=== PATIENT | female | born 1980 | race Caucasian/White ===

== ENCOUNTER 2020-05-31 15:55 | Emergency (ER) | payer MEDICAID ==
--- NOTE | 2020-05-31 16:29 | EDM.PDOC ---
ED HPI GENERAL MEDICAL PROBLEM - General Chief Complaint: Behavioral/Psych Stated Complaint: behavioral issue Time Seen by Provider: 05/31/20 16:20 Source of Information: Reports: Patient, Old Records ([facility] EMR. No paper hospital chart available.) History Limitations: Reports: No Limitations - History of Present Illness INITIAL COMMENTS - FREE TEXT/NARRATIVE: The patient was brought to the emergency room via private automobile by Sejal Michel from [facility], who was concerned about the patient's anxiety and depression with apparent returned alcohol use since being discharged from the treatment program at [facility] on 05/28. Patient denies any suicidal ideation, however is having a panic attack and is requesting some sedation. She apparently did drink 1 shot of vodka earlier today and has had used some alcohol since hospital discharge as above. She has not restarted her marijuana use, however. No history of hallucinations, etc.. No recent history of abdominal pain, heartburn, nausea, diarrhea, melena, gross hematochezia, or any food intolerance, including fatty foods, etc.. The patient also denies any recent fever, cough, wheezing, dyspnea, etc.. No history of recent headaches, visual changes, diplopia, change in mental status, or other change in neurological status. She denies any pain or discomfort. 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: Other (see below) (None) - Related Data Allergies Allergy/AdvReac Type Severity Reaction Status Date / Time No Known Allergies Allergy Verified 05/31/20 15:58 Home Meds: Home Meds Divalproex Sodium 2,500 mg PO BEDTIME 05/31/20 [History] Docusate Sodium [Colace] 100 mg PO BID PRN 05/31/20 [History] Multivitamins,Ther w-Minerals [Multivitamins with Minerals HP] 1 tab PO DAILY 05/31/20 [History] Nicotine Polacrilex [Nicotine Gum] 4 mg PO 6XDAY PRN 05/31/20 [History] Nicotine [Nicotine Patch] 1 patch TOP DAILY PRN 05/31/20 [History] OLANZapine [Olanzapine] 20 mg PO BEDTIME 05/31/20 [History] Polyvinyl Alcohol [Artificial Tears] 1 drop EYEBOTH Q4H PRN 05/31/20 [History] Propranolol HCl [Propranolol] 10 mg PO BID 05/31/20 [History] SUMAtriptan [Imitrex] 100 mg PO DAILY PRN 05/31/20 [History] hydrOXYzine pamoate [Vistaril] 25 mg PO TID 05/31/20 [History] Past Medical History HEENT History: Reports: Allergic Rhinitis, Impaired Vision, Other (See Below) Other HEENT History: The patient wears glasses and soft contact lenses. 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 Musculoskeletal History: Reports: Arthritis, Osteoarthritis Neurological History: Reports: Headaches, Chronic, Migraines Psychiatric History: Reports: Anxiety, Depression, Panic Attack, Psych Hospitalization(s), Psychosis, Other (See Below). Denies: Suicide Attempt, Suicidal Ideation Other Psychiatric History: Recent psychiatric, alcohol, and drug treatment at [facility] in May 2020 Endocrine/Metabolic History: Reports: Obesity/BMI 30+ - Past Surgical History Female Surgical History: Reports: D&C, Dilitation & Evacuation, Other (See Below) Other Female Surgeries/Procedures: SABs as above. Social & Family History - Tobacco Use Smoking Status *Q: Current Every Day Smoker Tobacco Use Within Last Twelve Months: Cigarettes Years of Tobacco use: 33 Packs/Tins Daily: 1 Packs/Tins Daily Comment: Started smoking at age 17 with maximum use of 1.5 packs/day Used Tobacco, but Quit: No Smoking Cessation Information Provided To Patient: Yes Second Hand Smoke Exposure: No Second Hand Smoke Education Provided: No - Alcohol Use Alcohol Use History: Yes Days Per Week of Alcohol Use: 2 Number of Drinks Per Day: 2 Number of Drinks Per Day Comment: Denies DWI, however previous history of alcohol abuse and treatment. Total Drinks Per Week: 4 Alcohol Use in Last Twelve Months: Yes Alcohol Use Frequency: Binges - Recreational Drug Use Recreational Drug Use: Yes Drug Use in Last 12 Months: Yes Recreational Drug Type: Reports: Amphetamines (Speed) (Experimental in 2019), Marijuana/Hashish (Regular use since age 17), Methamphetamine (As above). Denies: Cocaine, Heroin, Inhalants (Glues, Solvents, Aerosols), LSD (Acid), Morphine, Oxycodone - Living Situation & Occupation Living situation: Reports: (2017, no children), Alone Occupation: Employed ([employer]) ED ROS GENERAL - Review of Systems Review Of Systems: Comprehensive ROS is negative, except as noted in HPI. ED EXAM, GENERAL - Physical Exam Exam: See Below Exam Limited By: No Limitations General Appearance: Alert, WD/WN, No Apparent Distress, Anxious (Moderate but not suicidal) Head: Atraumatic, Normocephalic Neck: Normal Inspection, Supple, Non-Tender, Full Range of Motion. No: Lymphadenopathy (L), Lymphadenopathy (R), Thyromegaly Respiratory/Chest: No Respiratory Distress, Lungs Clear, Normal Breath Sounds, No Accessory Muscle Use, Chest Non-Tender. No: Pleural Rub, Retractions Cardiovascular: Normal Peripheral Pulses, Regular Rate, Rhythm, No Edema, No Gallop, No JVD, No Murmur, No Rub. No: Gallop/S3, Gallop/S4, Friction Rub Peripheral Pulses: 2+: Radial (L), Radial (R) GI/Abdominal: Normal Bowel Sounds, Soft, Non-Tender, No Organomegaly, No Distention, No Abnormal Bruit, No Mass, Other (Obese). No: Guarding (Female) Exam: Deferred Rectal (Female) Exam: Deferred Back Exam: Normal Inspection, Full Range of Motion. No: CVA Tenderness (L), CVA Tenderness (R), Muscle Spasm Extremities: Normal Inspection, Normal Range of Motion, Non-Tender, Normal Capillary Refill, No Pedal Edema Neurological: Alert, Oriented, CN II-XII Intact, Normal Cognition, Normal Gait, No Motor/Sensory Deficits Psychiatric: Anxious (Moderate), Depressed Mood (Moderate but not suicidal), Other (No evidence of intoxication) Skin Exam: Warm, Dry, Intact, Normal Color, No Rash. No: Diaphoretic, Wound/Incision Lymphatic: No Adenopathy Course - Vital Signs Last Recorded V/S: Last Vital Signs Temp 37.3 C 05/31/20 15:59 Pulse 86 05/31/20 15:59 Resp 16 05/31/20 15:59 BP 126/65 05/31/20 15:59 Pulse Ox 99 05/31/20 15:59 Vital Signs - 24 hr 05/31/20 15:59 Temperature [ 37.3 C Temporal] Pulse, 86 Peripheral [ Right Pulse Oximetry] Respiratory 16 Rate Blood Pressure 126/65 [Left Upper Arm ] O2 Sat by Pulse 99 Oximetry - Orders/Labs/Meds Labs: Laboratory Tests 05/31/20 05/31/20 05/31/20 Range/Units 17:06 17:06 17:10 WBC 8.9 (4.0-10.2) K/uL RBC 3.34 L (3.77-5.09) M/uL Hgb 11.0 L (11.7-15.5) g/dL Hct 33.0 L (34.0-46.0) % MCV 98.8 H (84.0-98.0) fL MCH 32.9 (28.2-33.3) pg MCHC 33.3 (31.7-36.0) g/dL RDW 12.6 (11.2-14.1) % Plt Count 346 (150-350) K/uL Neut % (Auto) 46.3 (45.0-80.0) % Lymph % (Auto) 42.2 (10.0-50.0) % [place] % (Auto) 11.2 (2.0-14.0) % Eos % (Auto) 0.2 (0.0-5.0) % Baso % (Auto) 0.1 (0.0-2.0) % Neut # (Auto) 4.11 (1.40-7.00) K/uL Lymph # (Auto) 3.76 H (0.50-3.50) K/uL [place] # (Auto) 1.00 (0.00-1.00) K/uL Eos # (Auto) 0.02 (0.00-0.50) K/uL Baso # (Auto) 0.01 (0.00-0.20) K/uL Sodium 135 L (136-145) mmol/L Potassium 3.6 (3.5-5.1) mmol/L Chloride 99 (98-107) mmol/L Carbon Dioxide 27.0 (21.0-32.0) mmol/L BUN 4 L (7-18) mg/dL Creatinine 0.60 (0.51-1.17) mg/dL Est Cr Clr Drug Dosing TNP Estimated GFR (MDRD) > 60 mL/min Glucose 128 H (74-106) mg/dL Calcium 9.0 (8.5-10.1) mg/dL Total Bilirubin 0.2 (0.2-1.0) mg/dL AST 16 (15-37) U/L ALT 26 (12-78) U/L Alkaline Phosphatase 61 (46-116) IU/L Total Protein 6.9 (6.4-8.2) g/dL Albumin 3.4 (3.4-5.0) g/dL TSH, Ultra Sensitive 2.151 (0.358-3.740) mIU/mL Urine Opiates Screen Negative (NEGATIVE) Ur Buprenorphine Scrn Negative (NEGATIVE) Ur Oxycodone Screen Negative (NEGATIVE) Ur EDDP (Meth Metab) Negative (NEGATIVE) Ur Barbiturates Screen Negative (NEGATIVE) Ur Tricyclics Screen Negative (NEGATIVE) Ur Amphetamine Screen Negative (NEGATIVE) U Methamphetamines Scrn Negative (NEGATIVE) Urine MDMA Screen Negative (NEGATIVE) U Benzodiazepines Scrn Negative (NEGATIVE) U Cocaine Metab Screen Negative (NEGATIVE) U Marijuana (THC) Screen Negative (NEGATIVE) Ethyl Alcohol 0.001 (0.000-0.080) g/dL Meds: Medications Discontinued Medications Generic Name Dose Route Start Last Admin Trade Name Freq PRN Reason Stop Dose Admin Heparin Sodium (Porcine) 4,000 units 05/31/20 16:30 Heparin Sodium IVPUSH 05/31/20 16:31 ONETIME ONE Nitroglycerin/Dextrose 25 mg in 250 mls @ 6 mls/hr 05/31/20 16:30 Nitroglycerin 25 Mg/D5w 250 Ml IV TITRATE MAX 10 MCG/MIN Heparin Sodium/Sodium Chloride 500 mls @ 0 mls/hr 05/31/20 16:30 Heparin 25,000 Units In 1/2 Ns 500 Ml IV TITRATE MAX Protocol 12 UNITS/KG/HR Sodium Chloride 1,000 mls @ 30 mls/hr 05/31/20 16:45 Normal Saline IV ASDIRECTED MAX Sodium Chloride 1,000 mls @ 30 mls/hr 05/31/20 16:45 Normal Saline IV ASDIRECTED MAX Lorazepam 1 mg 05/31/20 16:57 05/31/20 17:36 Ativan IVPUSH 05/31/20 16:58 1 mg ONETIME ONE Administration Sodium Chloride 10 ml 05/31/20 16:33 Saline Flush FLUSH ASDIRECTED PRN Keep Vein Open Sodium Chloride 10 ml 05/31/20 16:57 Saline Flush FLUSH ASDIRECTED PRN Keep Vein Open Ticagrelor 180 mg 05/31/20 16:38 Brilinta PO 05/31/20 16:39 ONETIME ONE - Radiology Interpretation Free Text/Narrative:: None Departure - Departure Time of Disposition: 19:14 Disposition: Home, Self-Care 01 Clinical Impression: Drug abuse, Mixed anxiety depressive disorder, Tobacco abuse counseling, Alcohol abuse, Hyponatremia Asthma Qualifiers: Asthma severity: mild Asthma persistence: intermittent Asthma complication type: with status asthmaticus Qualified Code(s): J45.22 - Mild intermittent asthma with status asthmaticus Anemia Qualifiers: Anemia type: unspecified type Qualified Code(s): D64.9 - Anemia, unspecified - Discharge Information *PRESCRIPTION DRUG MONITORING PROGRAM REVIEWED*: Not Applicable *COPY OF PRESCRIPTION DRUG MONITORING REPORT IN PATIENT PAULINE: Not Applicable Instructions: Steps to Quit Smoking, [id number], Health Risks of Smoking, Substance Use Disorder and Mental Illness Referrals: Iqra Roldan PA-C [Primary Care Provider] - Forms: ED Department Discharge Additional Instructions: 1. Follow-up with your regular provider, Iqra Briseno PA-C, at [facility] in [place], as scheduled tomorrow and see if you can expedite your psychiatric telemedicine conference. 2. Stop all tobacco use AKIRA as directed/per provided information and consider contacting Quit LIne, etc.. 3. Stop all alcohol and illicit drug use AKIRA as discussed 4. Immediately after this visit verify that your cellular telephone's voicemail has been activated and is empty. Also verify that your home telephone's answering machine is operating properly and has space to receive messages. Note that it is sometimes necessary for us to be able to contact you at a later date to discuss your medical care. 5. Please remember that we are ALWAYS here for you and want to answer any questions you may have. Feel free to call the hospital any time and we call you back AKIRA. Sepsis Event Note (ED) - Evaluation Sepsis Screening Result: No Definite Risk - Problem List & Annotations (1) Mixed anxiety depressive disorder SNOMED Code(s): 337147682 Code(s): F41.8 - OTHER SPECIFIED ANXIETY DISORDERS Status: Acute Priority: High Annotation/Comment:: Poor control based on today's evaluation. Note recent hospitalization and discharge from [facility] on 05/28/2020 for treatment of her emotional disorder, substance abuse, etc. as above and below. Emotional support was provided. She apparently already has telemedicine psychotherapy counseling scheduled through [facility]. She also has a follow-up appointment with her regular provider tomorrow with regular provider to attempt to obtain an earlier psychiatric teleconference as per discharge instructions. 1 dose of IV Ativan was given with excellent results. Sedation precautions were given. She does not need a work excuse by her history. (2) Alcohol abuse SNOMED Code(s): 06675799 Code(s): F10.10 - ALCOHOL ABUSE, UNCOMPLICATED Status: Chronic Priority: Medium Annotation/Comment:: Alcohol level normal today. Note recent alcohol treatment at [facility] with discharge on 05/28. Alcohol cessation strongly encouraged. (3) Asthma SNOMED Code(s): 649963235 Code(s): J45.909 - UNSPECIFIED ASTHMA, UNCOMPLICATED Status: Chronic Priority: Medium Annotation/Comment:: No recent fever or bronchitic type symptoms. Stable by history. No tobacco and marijuana use Qualifiers: Asthma severity: mild Asthma persistence: intermittent Asthma complication type: with status asthmaticus Qualified Code(s): J45.22 - Mild intermittent asthma with status asthmaticus (4) Drug abuse SNOMED Code(s): 72185176 Code(s): F19.10 - OTHER PSYCHOACTIVE SUBSTANCE ABUSE, UNCOMPLICATED Status: Chronic Priority: Medium Annotation/Comment:: Note recent hospitalization at [facility] as above. Patient stated that she had tainted marijuana prior to that admission. Discontinue marijuana AKIRA. (5) Tobacco abuse counseling SNOMED Code(s): 758257831, 896605733, 780808955 Code(s): Z71.6 - TOBACCO ABUSE COUNSELING Status: Chronic Priority: Medium Annotation/Comment:: Tobacco and marijuana cessation AKIRA strongly encouraged with information provided. (6) Anemia SNOMED Code(s): 101650453 Code(s): D64.9 - ANEMIA, UNSPECIFIED Status: Acute Priority: Medium Onset Date: 05/31/20 Annotation/Comment:: Observe for now. Further work-up by regular provider depending on her clinical course. Qualifiers: Anemia type: unspecified type Qualified Code(s): D64.9 - Anemia, unspecified (7) Hyponatremia SNOMED Code(s): 34859041 Code(s): E87.1 - HYPO-OSMOLALITY AND HYPONATREMIA Status: Acute Priority: Medium Onset Date: 05/31/20 Annotation/Comment:: Observe for now. - Problem List Review Problem List Initiated/Reviewed/Updated: Yes - Assessment/Plan Assessment:: As above Plan: As above. Extensive precautions were given to the patient, who is in agreement with the treatment plan. See Patient Instructions for further treatment and plan.
[2020-05-31] MEDS ORDERED: Heparin Sodium 5,000 Units/ML Vial IVPUSH ONE (16:30)
[2020-05-31] MEDS ORDERED: Heparin Sodium/0.45% NaCl 500 ML IV SCH (16:30)
[2020-05-31] MEDS ORDERED: Nitroglycerin/D5W 25 MG/250 ML BOTTLE IV SCH (16:30)
[2020-05-31] MEDS ORDERED: Sodium Chloride 0.9% 10 ML Syringe FLUSH PRN ×2 (16:33→16:57)
[2020-05-31] MEDS ORDERED: Aspirin 81 MG Tab.Chew CHEW ONE (16:38)
[2020-05-31] MEDS ORDERED: Ticagrelor 90 MG Tab PO ONE (16:38)
[2020-05-31] MEDS ORDERED: Sodium Chloride 0.9% 1,000 ML IV SCH ×2 (16:45)
[2020-05-31 17:28] LABS: BARBITURATE SCREEN,URINE NEGATIVE (NEGATIVE); BENZODIAZEPINES SCREEN,URINE NEGATIVE (NEGATIVE); EDDP,URINE SCREEN NEGATIVE (NEGATIVE); TCA SCREEN,URINE NEGATIVE (NEGATIVE); THC SCREEN,URINE 50 NG/ML NEGATIVE (NEGATIVE)
[2020-05-31 17:34] LABS: CHLORIDE,CL 99 mmol/L (98-107); SODIUM,NA 135 mmol/L (136-145)
[2020-05-31] MEDS: LORazepam 2 MG/ML SDV IVPUSH ONE (17:36)
== END 2020-05-31 19:14 | disposition home or self-care (01) ==
LOC: LL.ED 15:55
DX: F41.8 Other specified anxiety disorders (principal); J45.22 Mild intermittent asthma with status asthmaticus; D64.9 Anemia, unspecified; F10.10 Alcohol abuse, uncomplicated; F19.10 Other psychoactive substance abuse, uncomplicated; E87.1 Hypo-osmolality and hyponatremia; F17.210 Nicotine dependence, cigarettes, uncomplicated; E66.9 Obesity, unspecified
CPT/HCPCS: 36415; 80053; 80305; 80307; 84443; 85025; 96374; 99284; J2060

== ENCOUNTER 2020-07-23 17:16 | Emergency (ER) | payer MEDICAID ==
--- NOTE | 2020-07-23 17:33 | EDM.PDOC ---
ED HPI GENERAL MEDICAL PROBLEM - General Chief Complaint: Behavioral/Psych Stated Complaint: anxious Time Seen by Provider: 07/23/20 17:16 Source of Information: Reports: Patient, Family (Aunt, Carin Michel), Old Records ([facility] EMR. No paper hospital chart available.) History Limitations: Reports: Other (Psychiatric status) - History of Present Illness INITIAL COMMENTS - FREE TEXT/NARRATIVE: Patient was brought to the emergency room via private automobile by her aunt for evaluation of her mixed anxiety depression disorder, which has been under poor control for the last several weeks despite current psychiatrist and psychotherapy counseling after her ER visit in this facility on 05/31/2020. She denies any hallucinations, suicidal ideation, etc. Patient is currently on a drug and alcohol monitoring program by her history with no recent illicit or alcohol use. She has been smoking large amounts at this time in hopes of controlling her anxiety with the patient denying any medication noncompliance, including excessive doses, etc.. No history of recent headaches, visual changes, diplopia, change in mental status, or other change in neurological status. The patient denies any chest pain/pressure, heart flutter, dizziness, orthostasis, orthopnea, diaphoresis, paresthesias, recent decreased exercise tolerance, or any other anginal-type symptoms. No recent history of abdominal pain, heartburn, nausea, diarrhea, melena, gross hematochezia, or any food intolerance, including fatty foods, etc.. The patient also denies any recent fever, cough, wheezing, dyspnea, etc.. She denies any pain or discomfort. Onset: Gradual Quality: Reports: Same as Previous Episode Improves with: Reports: None Worsens with: Reports: None Context: Reports: Other (As above). 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: Other Medication(s) (Regular medications) - Related Data Allergies Allergy/AdvReac Type Severity Reaction Status Date / Time No Known Allergies Allergy Verified 07/23/20 18:08 Home Meds: Home Meds Divalproex Sodium 2,500 mg PO BEDTIME 05/31/20 [History] Multivitamins,Ther w-Minerals [Multivitamins with Minerals HP] 1 tab PO DAILY 05/31/20 [History] OLANZapine [Olanzapine] 20 mg PO BEDTIME 05/31/20 [History] Propranolol HCl [Propranolol] 10 mg PO BID 05/31/20 [History] hydrOXYzine pamoate [Vistaril] 25 mg PO TID PRN 05/31/20 [History] Albuterol Sulfate [Proair Respiclick] 2 puff IH Q4HR PRN 07/23/20 [History] Past Medical History HEENT History: Reports: Allergic Rhinitis, Impaired Vision, Other (See Below) Other HEENT History: The patient wears glasses and soft contact lenses. 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 Musculoskeletal History: Reports: Arthritis, Osteoarthritis Neurological History: Reports: Headaches, Chronic, Migraines Psychiatric History: Reports: Anxiety, Depression, Panic Attack, Psych Hospitalization(s), Psychosis, Other (See Below). Denies: Suicide Attempt, Suicidal Ideation Other Psychiatric History: Recent psychiatric, alcohol, and drug treatment at [facility] in May 2020 Endocrine/Metabolic History: Reports: Obesity/BMI 30+ - Past Surgical History Female Surgical History: Reports: D&C, Dilitation & Evacuation, Other (See Below) Other Female Surgeries/Procedures: SABs as above. Social & Family History - Tobacco Use Tobacco Use Status *Q: Current Every Day Tobacco User Tobacco Use Within Last Twelve Months: Cigarettes Years of Tobacco use: 33 Packs/Tins Daily: 1 Packs/Tins Daily Comment: Started smoking at age 17 with maximum use of 1.5 packs/day. Used Tobacco, but Quit: No Smoking Cessation Information Provided To Patient: No (Previously provided on 05/31/2020) Second Hand Smoke Exposure: No Second Hand Smoke Education Provided: No - Alcohol Use Alcohol Use History: Yes Days Per Week of Alcohol Use: 0 Number of Drinks Per Day Comment: Currently in alcohol and drug monitoring program with previous history of alcohol treatment as above but no DWI. Alcohol Use in Last Twelve Months: Yes - Recreational Drug Use Recreational Drug Use: Yes Drug Use in Last 12 Months: Yes Recreational Drug Type: Reports: Amphetamines (Speed) (Experimental in 2019), Marijuana/Hashish (Regular use since age 17), Methamphetamine (As above). Denies: Cocaine, Heroin, Inhalants (Glues, Solvents, Aerosols), LSD (Acid), Morphine, Oxycodone Other Recreational Drug Type: Note currently in drug monitoring program. Recreational Drug Use Frequency: Binges - Living Situation & Occupation Living situation: Reports: (2017, no children), Alone Occupation: Employed ([employer]) ED ROS GENERAL - Review of Systems Review Of Systems: Comprehensive ROS is negative, except as noted in HPI. ED EXAM, GENERAL - Physical Exam Exam: See Below Exam Limited By: No Limitations General Appearance: Alert, WD/WN, No Apparent Distress, Anxious (Severe) Head: Atraumatic, Normocephalic. No: Facial Swelling, Facial Tenderness, Sinus Tenderness Neck: Normal Inspection, Supple, Non-Tender, Full Range of Motion. No: Lymphadenopathy (L), Lymphadenopathy (R), Thyromegaly Respiratory/Chest: No Respiratory Distress, Lungs Clear, Normal Breath Sounds, No Accessory Muscle Use, Chest Non-Tender. No: Pleural Rub, Retractions Cardiovascular: Normal Peripheral Pulses, No Edema, No Gallop, No JVD, No Murmur, No Rub, Tachycardia (Mild tachycardia secondary to her anxiety with regular rhythm). No: Gallop/S3, Gallop/S4, Friction Rub Peripheral Pulses: 2+: Radial (L), Radial (R) GI/Abdominal: Normal Bowel Sounds, Soft, Non-Tender, No Organomegaly, No Distention, No Abnormal Bruit, No Mass. No: Guarding (Female) Exam: Deferred Rectal (Female) Exam: Deferred Back Exam: Normal Inspection, Full Range of Motion. No: CVA Tenderness (L), CVA Tenderness (R), Muscle Spasm Extremities: Normal Inspection, Normal Range of Motion, Non-Tender, No Pedal Edema, Normal Capillary Refill. No: Kiran's Sign Neurological: Alert, Oriented, CN II-XII Intact, Normal Cognition, Normal Gait, No Motor/Sensory Deficits, Other (No sign of intoxication) Psychiatric: Anxious (Severe), Depressed Mood (Mild to moderate with no suicidal ideation, etc. and good eye contact), Other (Logorrhea with possible psychotic component but no acute hallucinations) Skin Exam: Warm, Dry, Intact, Normal Color, No Rash. No: Diaphoretic, Wound/Incision Lymphatic: No Adenopathy Course - Vital Signs Last Recorded V/S: Last Vital Signs Temp 36.9 C 07/23/20 18:27 Pulse 113 H 07/23/20 18:27 Resp 20 07/23/20 18:27 BP 144/84 H 07/23/20 18:27 Pulse Ox 100 07/23/20 18:27 Vital Signs - 24 hr 07/23/20 07/23/20 18:23 18:27 Temperature [ 36.9 C 36.9 C Temporal] Pulse, 113 H 113 H Peripheral [ Left Pulse Oximetry] Respiratory 20 20 Rate Blood Pressure 144/84 H 144/84 H [Left Upper Arm ] O2 Sat by Pulse 100 100 Oximetry - Orders/Labs/Meds Orders: Active Orders 24 hr Category Date Time Status Obtain Past Medical Record [OM.PC] Routine Oth 07/23/20 17:34 Active Labs: None Meds: Medications Discontinued Medications Generic Name Dose Route Start Last Admin Trade Name Caitlyn PRN Reason Stop Dose Admin Diazepam 10 mg 07/23/20 17:34 07/23/20 18:08 Valium IM 07/23/20 17:35 10 mg ONETIME ONE Administration - Radiology Interpretation Free Text/Narrative:: None Departure - Departure Time of Disposition: 18:39 Disposition: Home, Self-Care 01 Condition: Fair Clinical Impression: Tobacco abuse counseling, Mixed anxiety depressive disorder Asthma Qualifiers: Asthma severity: mild Asthma persistence: intermittent Asthma complication type: with status asthmaticus Qualified Code(s): J45.22 - Mild intermittent asthma with status asthmaticus - Discharge Information *PRESCRIPTION DRUG MONITORING PROGRAM REVIEWED*: Not Applicable *COPY OF PRESCRIPTION DRUG MONITORING REPORT IN PATIENT PAULINE: Not Applicable Referrals: PCP,None [Primary Care Provider] - Forms: ED Department Discharge Additional Instructions: 1. Call your psychiatrist AKIRA on 07/26 as discussed for reevaluation of your current medical therapy. 2. Sedation precautions with no driving, etc. for 18 hours because of emergency room medications. 3. Otherwise continue your current medical therapy as previously prescribed and do not exceed these recommended doses 4. Immediately after this visit verify that your cellular telephone's voicemail has been activated and is empty. Also verify that your home telephone's answering machine is operating properly and has space to receive messages. Note that it is sometimes necessary for us to be able to contact you at a later date to discuss your medical care. 5. Please remember that we are ALWAYS here for you and want to answer any questions you may have. Feel free to call the hospital any time and we call you back AKIRA. 6. Consider tobacco cessation as discussed once your emotional status has stabilized. Sepsis Event Note (ED) - Focused Exam Vital Signs: Vital Signs Temp Pulse Resp BP Pulse Ox 07/23/20 18:27 36.9 C 113 H 20 144/84 H 100 07/23/20 18:23 36.9 C 113 H 20 144/84 H 100 - Problem List & Annotations (1) Mixed anxiety depressive disorder SNOMED Code(s): 558124877 Code(s): F41.8 - OTHER SPECIFIED ANXIETY DISORDERS Status: Acute Priority: High Current Visit: No Annotation/Comment:: Poor control based on today's evaluation. IM diazepam given in the emergency room. She does agree to contact her psychiatrist, Dr. Giordano, AKIRA on 07/26 for reevaluation of her current medical therapy. Note recent hospitalization and discharge from [facility] on 05/28/2020 for treatment of her emotional disorder, substance abuse, etc. as above. Emotional support was provided to the patient and her aunt. She apparently already is receiving psychotherapy counseling scheduled through [facility]. Sedation precautions were given. She does not need a work excuse by her history. She is currently on a drug monitoring program by her history. The patient's mother and aunt will monitor her throughout the weekend. (2) Asthma SNOMED Code(s): 358221268 Code(s): J45.909 - UNSPECIFIED ASTHMA, UNCOMPLICATED Status: Chronic Priority: Medium Current Visit: No Annotation/Comment:: No recent fever or bronchitic type symptoms. Stable by history. Note current tobacco and previous marijuana use. Qualifiers: Asthma severity: mild Asthma persistence: intermittent Asthma complication type: with status asthmaticus Qualified Code(s): J45.22 - Mild intermittent asthma with status asthmaticus (3) Tobacco abuse counseling SNOMED Code(s): 270728903, 441256377, 479997051 Code(s): Z71.6 - TOBACCO ABUSE COUNSELING Status: Chronic Priority: Medium Current Visit: No Annotation/Comment:: Tobacco and marijuana cessation AKIRA strongly encouraged after stabilization of her emotional status with information previously provided at time of my ER evaluation with her on 05/31/2020. - Problem List Review Problem List Initiated/Reviewed/Updated: Yes - My Orders Last 24 Hours: My Active Orders 07/23/20 17:34 Obtain Past Medical Record [OM.PC] Routine - Assessment/Plan Last 24 Hours: My Active Orders 07/23/20 17:34 Obtain Past Medical Record [OM.PC] Routine Assessment:: As above. Plan: As above. Extensive precautions were given to the patient and her aunt, who are in agreement with the treatment plan. See Patient Instructions for further treatment and plan.
== END 2020-07-23 18:39 | disposition home or self-care (01) ==
LOC: LL.ED 17:16
DX: J45.22 Mild intermittent asthma with status asthmaticus (principal); F41.8 Other specified anxiety disorders; Z71.6 Tobacco abuse counseling; F17.210 Nicotine dependence, cigarettes, uncomplicated; E66.9 Obesity, unspecified; Z79.899 Other long term (current) drug therapy; Z68.28 Body mass index [BMI] 28.0-28.9, adult; J45.909 Unspecified asthma, uncomplicated
CPT/HCPCS: 96372; 99283; J3360

== ENCOUNTER 2020-07-24 12:40 | Emergency (ER) | payer MEDICAID ==
[2020-07-24] MEDS ORDERED: Haloperidol 5 MG Tab PO ONE (13:17)
[2020-07-24] MEDS ORDERED: LORazepam 1 MG Tab PO ONE ×2 (13:20→14:05)
[2020-07-24] MEDS ORDERED: OLANZapine 10 MG Tab PO ONE (14:05)
[2020-07-24] MEDS ORDERED: Sodium Chloride 3% 500 ML IV SCH (15:05)
[2020-07-24 15:58] LABS: CHLORIDE,CL 88 mmol/L (98-107)
[2020-07-24 15:59] LABS: ACETAMINOPHEN < 10.0 ug/mL (10.0-30.0); SODIUM,NA 124 mmol/L (136-145)
[2020-07-24 16:08] LABS: BARBITURATE SCREEN,URINE NEGATIVE (NEGATIVE); BENZODIAZEPINES SCREEN,URINE NEGATIVE (NEGATIVE); EDDP,URINE SCREEN NEGATIVE (NEGATIVE); TCA SCREEN,URINE NEGATIVE (NEGATIVE); THC SCREEN,URINE 50 NG/ML NEGATIVE (NEGATIVE)
[2020-07-24] MEDS ORDERED: Ibuprofen 600 MG Tab PO ONE (16:42)
[2020-07-24] MEDS ORDERED: Nicotine 21 MG/24 Hr Patch TRDERM ONE (16:42)
--- NOTE | 2020-07-24 17:48 | EDM.PDOC ---
ED HPI GENERAL MEDICAL PROBLEM - General Chief Complaint: Behavioral/Psych Stated Complaint: agitation Time Seen by Provider: 07/24/20 12:45 Source of Information: Reports: Patient, EMS, Police History Limitations: Reports: Altered Mental Status - History of Present Illness INITIAL COMMENTS - FREE TEXT/NARRATIVE: Patient called EMS to her apartment due to feeling stressed/anxious. Has history of bipolar and schizoaffective disorder that is currently exacerbated due to noncompliance with medication. She is cooperative and agreeable with staff and wants help. Very hard to get accurate history from her as she was experiencing flight of ideas/tangental thought pattern. Unable to keep her on track most of time/get direct answers to questions. CAnnot say when she stopped taking meds/what meds she stopped. Per EMS her mother lives next door to her and essentially said patient is noncompliant in general. Patient's consulting sme also indicated general noncompliance has been observed. Patient herself just replies that she doesn't take any meds that "fall out of the case and onto the ground". Patient denies homicidal/suicidal intent or ideation. She denies hearing voices/hallucinations. She reports being hospitalized multiple times in [place] but is vague on [place] hospitalizations. Nursing staff familiar with patient note that patient has been to [facility] previously. Patient denies other psychiatric diagnoses. Smokes 1PPD. Says she drinks because nothing else to do here in [place]. Likes Vodka. Has not had anything today. - Related Data Allergies Allergy/AdvReac Type Severity Reaction Status Date / Time No Known Allergies Allergy Verified 07/23/20 18:08 Home Meds: Home Meds Divalproex Sodium 2,500 mg PO BEDTIME 05/31/20 [History] Multivitamins,Ther w-Minerals [Multivitamins with Minerals HP] 1 tab PO DAILY 05/31/20 [History] OLANZapine [Olanzapine] 20 mg PO BEDTIME 05/31/20 [History] Propranolol HCl [Propranolol] 10 mg PO BID 05/31/20 [History] hydrOXYzine pamoate [Vistaril] 25 mg PO TID PRN 05/31/20 [History] Albuterol Sulfate [Proair Respiclick] 2 puff IH Q4HR PRN 07/23/20 [History] Past Medical History HEENT History: Reports: Allergic Rhinitis, Impaired Vision, Other (See Below) Other HEENT History: The patient wears glasses and soft contact lenses. 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 Musculoskeletal History: Reports: Arthritis, Osteoarthritis Neurological History: Reports: Headaches, Chronic, Migraines Psychiatric History: Reports: Addiction, Anxiety, Depression, Panic Attack, Psych Hospitalization(s), Psychosis, Other (See Below). Denies: Suicide Attempt, Suicidal Ideation Other Psychiatric History: Recent psychiatric, alcohol, and drug treatment at [facility] in May 2020. Reports previous diagnosis of schizoaffective and bipolar disorders. Endocrine/Metabolic History: Reports: Obesity/BMI 30+ - Past Surgical History Female Surgical History: Reports: D&C, Dilitation & Evacuation, Other (See Below) Other Female Surgeries/Procedures: SABs as above. Social & Family History - Tobacco Use Tobacco Use Status *Q: Current Every Day Tobacco User Packs/Tins Daily: 1 Smoking Cessation Information Provided To Patient: Patient Refused - Alcohol Use Alcohol Use History: Yes Alcohol Use Comment: Unable to pin down specific use. Has undergone treatment in past per chart review. - Living Situation & Occupation Living situation: Reports: (2017, no children), Alone Occupation: Employed ([employer]) ED ROS GENERAL - Review of Systems Review Of Systems: Comprehensive ROS is negative, except as noted in HPI. Psychiatric: Reports: Agitation, Anxiety, Depression, Mood Lability. Denies: Confusion, Hallucinations, Homicidal Ideation, Suicidal Ideation ED EXAM, GENERAL - Physical Exam Exam: See Below Exam Limited By: No Limitations General Appearance: Alert, WD/WN, No Apparent Distress Eye Exam: Bilateral Eye: EOMI, PERRL Ears: Normal External Exam, Normal Canal, Hearing Grossly Normal Nose: No: Nasal Deformity, Nasal Swelling, Nasal Drainage Throat/Mouth: Normal Lips, Normal Voice, No Airway Compromise Head: Atraumatic, Normocephalic Neck: Supple, Full Range of Motion Respiratory/Chest: No Respiratory Distress, Lungs Clear, Normal Breath Sounds, No Accessory Muscle Use, Chest Non-Tender Cardiovascular: Normal Peripheral Pulses, Regular Rate, Rhythm, No Edema, No Murmur GI/Abdominal: Normal Bowel Sounds, Soft, Non-Tender, No Distention (Female) Exam: Deferred Rectal (Female) Exam: Deferred Extremities: Normal Inspection, Normal Range of Motion, Non-Tender, No Pedal Edema, Normal Capillary Refill Neurological: Alert, Oriented, No Motor/Sensory Deficits Psychiatric: Other (Mildly pressured speech, tangental/flight of ideas noted. ) Skin Exam: Warm, Dry, Intact, Normal Color Course - Orders/Labs/Meds Labs: Laboratory Tests 07/24/20 07/24/20 07/24/20 Range/Units 13:23 13:23 13:23 WBC 9.1 (4.0-10.2) K/uL RBC 3.36 L (3.77-5.09) M/uL Hgb 10.9 L (11.7-15.5) g/dL Hct 31.9 L (34.0-46.0) % MCV 94.9 D (84.0-98.0) fL MCH 32.4 (28.2-33.3) pg MCHC 34.2 (31.7-36.0) g/dL RDW 11.8 (11.2-14.1) % Plt Count 299 (150-350) K/uL Neut % (Auto) 49.9 (45.0-80.0) % Lymph % (Auto) 40.9 (10.0-50.0) % [place] % (Auto) 8.6 (2.0-14.0) % Eos % (Auto) 0.4 (0.0-5.0) % Baso % (Auto) 0.2 (0.0-2.0) % Neut # (Auto) 4.54 (1.40-7.00) K/uL Lymph # (Auto) 3.72 H (0.50-3.50) K/uL [place] # (Auto) 0.78 (0.00-1.00) K/uL Eos # (Auto) 0.04 (0.00-0.50) K/uL Baso # (Auto) 0.02 (0.00-0.20) K/uL Sodium 124 L* D (136-145) mmol/L Potassium 3.9 (3.5-5.1) mmol/L Chloride 88 L (98-107) mmol/L Carbon Dioxide 24.3 (21.0-32.0) mmol/L BUN 10 (7-18) mg/dL Creatinine 0.59 (0.51-1.17) mg/dL Est Cr Clr Drug Dosing TNP Estimated GFR (MDRD) > 60 mL/min Glucose 99 (74-106) mg/dL Calcium 8.9 (8.5-10.1) mg/dL Magnesium 2.0 (1.8-2.4) mg/dL Total Bilirubin 0.3 (0.2-1.0) mg/dL AST 17 (15-37) U/L ALT 19 (12-78) U/L Alkaline Phosphatase 60 (46-116) IU/L Total Protein 6.6 (6.4-8.2) g/dL Albumin 3.2 L (3.4-5.0) g/dL HCG, Qual Negative (NEGATIVE) Specimen Type Urine Color Urine Appearance Urine pH (5.0-9.0) Ur Specific [place] (1.005-1.030) Urine Protein (NEGATIVE) mg/dL Urine Glucose (UA) (NEGATIVE) mg/dL Urine Ketones (NEGATIVE) mg/dL Urine Occult Blood (NEGATIVE) Urine Nitrite (NEGATIVE) Urine Bilirubin (NEGATIVE) Urine Urobilinogen (0.2-1.0) E.U./dL Ur Leukocyte Esterase (NEGATIVE) Urine RBC /HPF Urine WBC /HPF Ur Epithelial Cells /LPF Urine Bacteria (NONE TO FEW) /HPF Urine Opiates Screen (NEGATIVE) Ur Buprenorphine Scrn (NEGATIVE) Ur Oxycodone Screen (NEGATIVE) Ur EDDP (Meth Metab) (NEGATIVE) Acetaminophen < 10.0 L (10.0-30.0) ug/mL Ur Barbiturates Screen (NEGATIVE) Ur Tricyclics Screen (NEGATIVE) Ur Amphetamine Screen (NEGATIVE) U Methamphetamines Scrn (NEGATIVE) Urine MDMA Screen (NEGATIVE) U Benzodiazepines Scrn (NEGATIVE) U Cocaine Metab Screen (NEGATIVE) U Marijuana (THC) Screen (NEGATIVE) Ethyl Alcohol 0.000 (0.000-0.080) g/dL SARS-CoV-2 RNA (JAZ) (NEGATIVE) 07/24/20 07/24/20 07/24/20 Range/Units 13:23 13:23 13:23 WBC (4.0-10.2) K/uL RBC (3.77-5.09) M/uL Hgb (11.7-15.5) g/dL Hct (34.0-46.0) % MCV (84.0-98.0) fL MCH (28.2-33.3) pg MCHC (31.7-36.0) g/dL RDW (11.2-14.1) % Plt Count (150-350) K/uL Neut % (Auto) (45.0-80.0) % Lymph % (Auto) (10.0-50.0) % [place] % (Auto) (2.0-14.0) % Eos % (Auto) (0.0-5.0) % Baso % (Auto) (0.0-2.0) % Neut # (Auto) (1.40-7.00) K/uL Lymph # (Auto) (0.50-3.50) K/uL [place] # (Auto) (0.00-1.00) K/uL Eos # (Auto) (0.00-0.50) K/uL Baso # (Auto) (0.00-0.20) K/uL Sodium (136-145) mmol/L Potassium (3.5-5.1) mmol/L Chloride (98-107) mmol/L Carbon Dioxide (21.0-32.0) mmol/L BUN (7-18) mg/dL Creatinine (0.51-1.17) mg/dL Est Cr Clr Drug Dosing Estimated GFR (MDRD) mL/min Glucose (74-106) mg/dL Calcium (8.5-10.1) mg/dL Magnesium (1.8-2.4) mg/dL Total Bilirubin (0.2-1.0) mg/dL AST (15-37) U/L ALT (12-78) U/L Alkaline Phosphatase (46-116) IU/L Total Protein (6.4-8.2) g/dL Albumin (3.4-5.0) g/dL HCG, Qual (NEGATIVE) Specimen Type Urinvoid Urine Color Yellow Urine Appearance Clear Urine pH 7.0 (5.0-9.0) Ur Specific [place] 1.020 (1.005-1.030) Urine Protein Negative (NEGATIVE) mg/dL Urine Glucose (UA) Negative (NEGATIVE) mg/dL Urine Ketones Trace H (NEGATIVE) mg/dL Urine Occult Blood Negative (NEGATIVE) Urine Nitrite Negative (NEGATIVE) Urine Bilirubin Negative (NEGATIVE) Urine Urobilinogen 0.2 (0.2-1.0) E.U./dL Ur Leukocyte Esterase Negative (NEGATIVE) Urine RBC 0-5 /HPF Urine WBC 0-5 /HPF Ur Epithelial Cells Few /LPF Urine Bacteria Few (NONE TO FEW) /HPF Urine Opiates Screen Negative (NEGATIVE) Ur Buprenorphine Scrn Negative (NEGATIVE) Ur Oxycodone Screen Negative (NEGATIVE) Ur EDDP (Meth Metab) Negative (NEGATIVE) Acetaminophen (10.0-30.0) ug/mL Ur Barbiturates Screen Negative (NEGATIVE) Ur Tricyclics Screen Negative (NEGATIVE) Ur Amphetamine Screen Negative (NEGATIVE) U Methamphetamines Scrn Negative (NEGATIVE) Urine MDMA Screen Negative (NEGATIVE) U Benzodiazepines Scrn Negative (NEGATIVE) U Cocaine Metab Screen Negative (NEGATIVE) U Marijuana (THC) Screen Negative (NEGATIVE) Ethyl Alcohol (0.000-0.080) g/dL SARS-CoV-2 RNA (JAZ) Negative (NEGATIVE) Meds: Medications Discontinued Medications Generic Name Dose Route Start Last Admin Trade Name Caitlyn PRN Reason Stop Dose Admin Ibuprofen 600 mg 07/24/20 16:42 07/24/20 16:47 Motrin PO 07/24/20 16:43 600 mg ONETIME ONE Administration Nicotine 21 mg 07/24/20 16:42 07/24/20 16:47 Habitrol TRDERM 07/24/20 16:43 21 mg ONETIME ONE Administration - Re-Assessments/Exams Free Text/Narrative Re-Assessment/Exam: 07/24/20 17:52 Baseline labs obtained. Drug screen/CBC/Chem/ETOH/Tylenol level/HCG/UA. Mildly low HBG noted. Na 124. It was noted when giving patient's any medication that patient drank large quantities of water. Suspect hyponatremia may be related to polydipsia. She initially received 5mg Haldol and 1mg Ativan PO upon arrival. This did seem to improve some of the excessive talkativeness. There was initial difficulty locating info pertaining to any recent visits due to computer system going down for several hours. Ultimately it was determined that she is supposed to be taking Zyprexa at night, 20mg. A single 10mg dose was ordered for the ER, in addition to one more mg of Ativan. Given her current mental state it was determined that she was unsafe to go home. Additionally she did have hyponatremia. No somnolence/muscle cramps/obvious confusion noted however. Call placed to [facility]/no rooms available. Call then placed to [facility] in [place]. After reviewing patient with avionics installer Psych provider, , and eventually their Hospitalist , , arrangements for transfer of patient to [place] arranged. IV hypertonic saline started in ER to begin correction of sodium. Patient will be admitted to hospital floor and will be followed by Psych. Patient agreeable/pleasant during entire stay. Departure - Departure Time of Disposition: 17:00 Disposition: DC/Tfer to Acute Hospital 02 Condition: Good Clinical Impression: Schizo affective schizophrenia, Bipolar 1 disorder, Hyponatremia - Discharge Information *PRESCRIPTION DRUG MONITORING PROGRAM REVIEWED*: Not Applicable *COPY OF PRESCRIPTION DRUG MONITORING REPORT IN PATIENT PAULINE: Not Applicable Referrals: Iqra Roldan PA-C [Primary Care Provider] -
== END 2020-07-24 17:05 ==
LOC: LL.ED 12:40
DX: F25.0 Schizoaffective disorder, bipolar type (principal); E87.1 Hypo-osmolality and hyponatremia; J45.909 Unspecified asthma, uncomplicated; F41.9 Anxiety disorder, unspecified; F32.9 Major depressive disorder, single episode, unspecified; E66.9 Obesity, unspecified; F17.210 Nicotine dependence, cigarettes, uncomplicated; Z79.899 Other long term (current) drug therapy; Z11.59 Encounter for screening for other viral diseases
CPT/HCPCS: 36415; 80053; 80305; 80307; 81001; 83735; 84703; 85025; 87635; 99284; A9270; J7040; U0002

== ENCOUNTER 2020-09-12 19:46 | Emergency (ER) | payer MEDICAID ==
--- NOTE | 2020-09-12 20:06 | EDM.PDOC ---
ED HPI GENERAL MEDICAL PROBLEM - General Chief Complaint: General Stated Complaint: ANXIETY Time Seen by Provider: 09/12/20 20:05 Source of Information: Reports: Patient, Old Records ([facility] EMR. No paper hospital chart available.) History Limitations: Reports: No Limitations - History of Present Illness INITIAL COMMENTS - FREE TEXT/NARRATIVE: The patient was brought to the emergency room via ambulance with design engineer products accompaniment with no treatment in route. Note that at about 3 PM this afternoon patient began experiencing some nonspecific numbness in her fingers with symptoms occurring only on an intermittent basis and possibility secondary to her anxiety versus panic attack. Patient did take a lorazepam at 3 PM with no improvement of her symptoms. She is uncertain whether her blood pressure may be elevated, however her blood pressure monitor is broken at home. The patient denies any chest pain/pressure, heart flutter, dizziness, orthostasis, orthopnea, diaphoresis, recent decreased exercise tolerance, or any other anginal-type symptoms. No recent history of abdominal pain, heartburn, nausea, diarrhea, melena, gross hematochezia, or any food intolerance, including fatty foods, etc.. She denies any gross hematuria, colic or other UTI symptoms. The patient also denies any recent fever, cough, wheezing, dyspnea, etc.. No history of recent headaches, visual changes, diplopia, change in mental status, or other change in neurological status. She denies any pain or discomfort. Onset: Today Duration: Intermittent Location: Reports: Other (No pain) Quality: Reports: Same as Previous Episode Severity: Moderate (Anxiety) Improves with: Reports: None Worsens with: Reports: None Context: Reports: Other (As above). 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: Other Medication(s) (As above) - Related Data Allergies Allergy/AdvReac Type Severity Reaction Status Date / Time No Known Allergies Allergy Verified 09/12/20 19:55 Home Meds: Home Meds Divalproex Sodium 2,000 mg PO BEDTIME 05/31/20 [History] Multivitamins,Ther w-Minerals [Multivitamins with Minerals HP] 1 tab PO DAILY 05/31/20 [History] OLANZapine [Olanzapine] 30 mg PO BEDTIME 05/31/20 [History] hydrOXYzine pamoate [Vistaril] 25 mg PO TID PRN 05/31/20 [History] Albuterol Sulfate [Proair Respiclick] 2 puff IH Q4HR PRN 07/23/20 [History] T[place]illo Carbonate [Lithobid] 4 tab PO BEDTIME 09/12/20 [History] Propranolol [Inderal] 20 mg PO BID 09/12/20 [History] Sodium Chloride 2 gm PO TID 09/12/20 [History] Past Medical History HEENT History: Reports: Allergic Rhinitis, Impaired Vision, Other (See Below) Other HEENT History: The patient wears glasses and soft contact lenses. 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 1 elective SAB and an additional regular SAB. Musculoskeletal History: Reports: Arthritis, Osteoarthritis Neurological History: Reports: Headaches, Chronic, Migraines Psychiatric History: Reports: Addiction, Anxiety, Bipolar, Depression, Panic Attack, Psych Hospitalization(s), Psychosis, Schizophrenia, Other (See Below). Denies: Suicide Attempt, Suicidal Ideation Other Psychiatric History: Recent psychiatric treatment in [place] in July 2020 with 1 week of inpatient hospitalization required. Additional previous psychiatric, alcohol, and drug treatment at [facility] in May 2020. Note previous diagnosis of schizoaffective and bipolar disorders. Endocrine/Metabolic History: Reports: Obesity/BMI 30+, Other (See Below) Other Endocrine/Metabolic History: Hyponatremia. - Past Surgical History Female Surgical History: Reports: D&C, Dilitation & Evacuation, Other (See Below) Other Female Surgeries/Procedures: SABs as above. - History Comment History Comment: Incomplete history with patient somewhat poor historian secondary to her anxiety, etc. Social & Family History - Tobacco Use Tobacco Use Status *Q: Current Every Day Tobacco User Tobacco Use Within Last Twelve Months: Cigarettes Years of Tobacco use: 33 Packs/Tins Daily: 1 Packs/Tins Daily Comment: Started smoking at age 17 with maximum use of 1.5 packs/day Used Tobacco, but Quit: No Smoking Cessation Information Provided To Patient: Yes Second Hand Smoke Exposure: No Second Hand Smoke Education Provided: No - Caffeine Use Caffeine Use: Reports: Coffee (1 cup/day), Soda (2 sodas per day), Tea (2 cups/day). Denies: Energy Drinks - Alcohol Use Alcohol Use History: Yes Days Per Week of Alcohol Use: 0 Number of Drinks Per Day: 5 Number of Drinks Per Day Comment: Usually mixed drinks. Previous history of alcohol abuse and treatment as above with no history of DWI. Total Drinks Per Week: 0 Alcohol Use in Last Twelve Months: Yes Alcohol Use Frequency: Binges - Recreational Drug Use Recreational Drug Use: Yes Drug Use in Last 12 Months: Yes Recreational Drug Type: Reports: Amphetamines (Speed) (Experimental in 2019), Marijuana/Hashish (Daily use since age 17, however stopped in July 2020.), Methamphetamine (As above). Denies: Cocaine, Heroin, Inhalants (Glues, Solvents, Aerosols), LSD (Acid), Morphine, Oxycodone - Living Situation & Occupation Living situation: Reports: (2017, no children), Alone Occupation: Employed ([employer]) ED ROS GENERAL - Review of Systems Review Of Systems: Comprehensive ROS is negative, except as noted in HPI. ED EXAM, GENERAL - Physical Exam Exam: See Below Exam Limited By: No Limitations General Appearance: Alert, WD/WN, No Apparent Distress, Anxious (Moderate) Head: Atraumatic, Normocephalic. No: Facial Swelling, Facial Tenderness, Sinus Tenderness Neck: Normal Inspection, Supple, Non-Tender, Full Range of Motion. No: Lym phadenopathy (L), Lymphadenopathy (R) Respiratory/Chest: No Respiratory Distress, Lungs Clear, Normal Breath Sounds, No Accessory Muscle Use, Chest Non-Tender. No: Pleural Rub, Retractions Cardiovascular: Normal Peripheral Pulses, Regular Rate, Rhythm, No Edema, No Gallop, No JVD, No Murmur, No Rub. No: Gallop/S3, Gallop/S4, Friction Rub Peripheral Pulses: 2+: Radial (L), Radial (R) GI/Abdominal: Normal Bowel Sounds, Soft, Non-Tender, No Organomegaly, No Distention, No Abnormal Bruit, No Mass, Other (Obese). No: Guarding (Female) Exam: Deferred Rectal (Female) Exam: Deferred Back Exam: Normal Inspection, Full Range of Motion. No: CVA Tenderness (L), CVA Tenderness (R) Extremities: Normal Inspection, Normal Range of Motion, Non-Tender, No Pedal Edema, Normal Capillary Refill. No: Kiran's Sign Neurological: Alert, Oriented, CN II-XII Intact, Normal Cognition, Normal Gait, No Motor/Sensory Deficits Psychiatric: Anxious (Moderate), Depressed Mood (Mild to moderate with good eye contact). No: Flat Affect, Tearful Skin Exam: Warm, Dry, Intact, Normal Color, No Rash. No: Diaphoretic, Wound/Incision Lymphatic: No Adenopathy Course - Vital Signs Last Recorded V/S: Last Vital Signs Temp 36.8 C 09/12/20 19:48 Pulse 80 09/12/20 20:39 Resp 16 09/12/20 20:39 BP 110/61 09/12/20 20:39 Pulse Ox 79 L 09/12/20 20:39 Vital Signs - 24 hr 09/12/20 09/12/20 09/12/20 19:48 20:24 20:39 Temperature [ 36.8 C Temporal] Pulse, 89 86 80 Peripheral [ Pulse Oximetry] Respiratory 16 16 16 Rate Blood Pressure 134/66 130/71 110/61 [Right Upper Arm] O2 Sat by Pulse 98 100 79 L Oximetry - Orders/Labs/Meds Orders: Active Orders 24 hr Category Date Time Status Cardiac Monitoring [RC] . DIRECTED Care 09/12/20 20:06 Active CULTURE URINE [RM] Routine Lab 09/12/20 20:46 Ordered Obtain Past Medical Record [OM.PC] Routine Oth 09/12/20 20:06 Active Labs: Laboratory Tests 09/12/20 09/12/20 09/12/20 Range/Units 20:10 20:10 20:12 WBC 13.4 H (4.0-10.2) K/uL RBC 3.28 L (3.77-5.09) M/uL Hgb 10.6 L (11.7-15.5) g/dL Hct 33.0 L (34.0-46.0) % MCV 100.6 H D (84.0-98.0) fL MCH 32.3 (28.2-33.3) pg MCHC 32.1 (31.7-36.0) g/dL RDW 12.0 (11.2-14.1) % Plt Count 359 H (150-350) K/uL Neut % (Auto) 59.6 (45.0-80.0) % Lymph % (Auto) 32.5 (10.0-50.0) % [place] % (Auto) 6.8 (2.0-14.0) % Eos % (Auto) 0.7 (0.0-5.0) % Baso % (Auto) 0.4 (0.0-2.0) % Neut # (Auto) 7.97 H (1.40-7.00) K/uL Lymph # (Auto) 4.35 H (0.50-3.50) K/uL [place] # (Auto) 0.91 (0.00-1.00) K/uL Eos # (Auto) 0.10 (0.00-0.50) K/uL Baso # (Auto) 0.05 (0.00-0.20) K/uL Sodium (136-145) mmol/L Potassium (3.5-5.1) mmol/L Chloride (98-107) mmol/L Carbon Dioxide (21.0-32.0) mmol/L BUN (7-18) mg/dL Creatinine (0.51-1.17) mg/dL Est Cr Clr Drug Dosing mL/min Estimated GFR (MDRD) mL/min Glucose (74-106) mg/dL Calcium (8.5-10.1) mg/dL Magnesium (1.8-2.4) mg/dL Total Bilirubin (0.2-1.0) mg/dL AST (15-37) U/L ALT (12-78) U/L Alkaline Phosphatase (46-116) IU/L Total Protein (6.4-8.2) g/dL Albumin (3.4-5.0) g/dL TSH, Ultra Sensitive (0.358-3.740) mIU/mL Specimen Type Urincc Urine Color Yellow Urine Appearance Clear Urine pH 7.0 (5.0-9.0) Ur Specific [place] 1.015 (1.005-1.030) Urine Protein Negative (NEGATIVE) mg/dL Urine Glucose (UA) Negative (NEGATIVE) mg/dL Urine Ketones Negative (NEGATIVE) mg/dL Urine Occult Blood Negative (NEGATIVE) Urine Nitrite Negative (NEGATIVE) Urine Bilirubin Negative (NEGATIVE) Urine Urobilinogen 0.2 (0.2-1.0) E.U./dL Ur Leukocyte Esterase Negative (NEGATIVE) Urine RBC Not seen /HPF Urine WBC Not seen /HPF Ur Epithelial Cells Rare /LPF Urine Bacteria Rare (NONE TO FEW) /HPF Urine Opiates Screen Negative (NEGATIVE) Ur Buprenorphine Scrn Negative (NEGATIVE) Ur Oxycodone Screen Negative (NEGATIVE) Ur EDDP (Meth Metab) Negative (NEGATIVE) Ur Barbiturates Screen Negative (NEGATIVE) Ur Tricyclics Screen Negative (NEGATIVE) Ur Amphetamine Screen Negative (NEGATIVE) U Methamphetamines Scrn Negative (NEGATIVE) Urine MDMA Screen Negative (NEGATIVE) U Benzodiazepines Scrn Negative (NEGATIVE) U Cocaine Metab Screen Negative (NEGATIVE) U Marijuana (THC) Screen Negative (NEGATIVE) Ethyl Alcohol (0.000-0.080) g/dL 09/12/20 Range/Units 20:12 WBC (4.0-10.2) K/uL RBC (3.77-5.09) M/uL Hgb (11.7-15.5) g/dL Hct (34.0-46.0) % MCV (84.0-98.0) fL MCH (28.2-33.3) pg MCHC (31.7-36.0) g/dL RDW (11.2-14.1) % Plt Count (150-350) K/uL Neut % (Auto) (45.0-80.0) % Lymph % (Auto) (10.0-50.0) % [place] % (Auto) (2.0-14.0) % Eos % (Auto) (0.0-5.0) % Baso % (Auto) (0.0-2.0) % Neut # (Auto) (1.40-7.00) K/uL Lymph # (Auto) (0.50-3.50) K/uL [place] # (Auto) (0.00-1.00) K/uL Eos # (Auto) (0.00-0.50) K/uL Baso # (Auto) (0.00-0.20) K/uL Sodium 136 D (136-145) mmol/L Potassium 3.5 (3.5-5.1) mmol/L Chloride 101 D (98-107) mmol/L Carbon Dioxide 26.7 (21.0-32.0) mmol/L BUN 13 (7-18) mg/dL Creatinine 0.67 (0.51-1.17) mg/dL Est Cr Clr Drug Dosing 85.07 mL/min Estimated GFR (MDRD) > 60 mL/min Glucose 101 (74-106) mg/dL Calcium 9.1 (8.5-10.1) mg/dL Magnesium 2.2 (1.8-2.4) mg/dL Total Bilirubin 0.2 (0.2-1.0) mg/dL AST 17 (15-37) U/L ALT 22 (12-78) U/L Alkaline Phosphatase 59 (46-116) IU/L Total Protein 6.9 (6.4-8.2) g/dL Albumin 3.5 (3.4-5.0) g/dL TSH, Ultra Sensitive 4.184 H (0.358-3.740) mIU/mL Specimen Type Urine Color Urine Appearance Urine pH (5.0-9.0) Ur Specific [place] (1.005-1.030) Urine Protein (NEGATIVE) mg/dL Urine Glucose (UA) (NEGATIVE) mg/dL Urine Ketones (NEGATIVE) mg/dL Urine Occult Blood (NEGATIVE) Urine Nitrite (NEGATIVE) Urine Bilirubin (NEGATIVE) Urine Urobilinogen (0.2-1.0) E.U./dL Ur Leukocyte Esterase (NEGATIVE) Urine RBC /HPF Urine WBC /HPF Ur Epithelial Cells /LPF Urine Bacteria (NONE TO FEW) /HPF Urine Opiates Screen (NEGATIVE) Ur Buprenorphine Scrn (NEGATIVE) Ur Oxycodone Screen (NEGATIVE) Ur EDDP (Meth Metab) (NEGATIVE) Ur Barbiturates Screen (NEGATIVE) Ur Tricyclics Screen (NEGATIVE) Ur Amphetamine Screen (NEGATIVE) U Methamphetamines Scrn (NEGATIVE) Urine MDMA Screen (NEGATIVE) U Benzodiazepines Scrn (NEGATIVE) U Cocaine Metab Screen (NEGATIVE) U Marijuana (THC) Screen (NEGATIVE) Ethyl Alcohol 0.000 (0.000-0.080) g/dL Meds: None - Radiology Interpretation Free Text/Narrative:: pattern hanger showed normal sinus rhythm in the 70s to 80s with no ectopy or arrhythmia. Departure - Departure Time of Disposition: 21:15 Disposition: Home, Self-Care 01 Condition: Fair Clinical Impression: Tobacco abuse counseling, Asthma, Mixed anxiety depressive disorder, Hyponatremia, Anemia, Leukocytosis - Discharge Information *PRESCRIPTION DRUG MONITORING PROGRAM REVIEWED*: Not Applicable *COPY OF PRESCRIPTION DRUG MONITORING REPORT IN PATIENT PAULINE: Not Applicable Instructions: Steps to Quit Smoking, [id number], Health Risks of Smoking Referrals: Iqra Roldan PA-C [Primary Care Provider] - Forms: ED Department Discharge Additional Instructions: 1. Followup with your regular provider in 7-10 days as directed for reevaluation and recommended repeat CBC and basic metabolic panel. Your TSH/thyroid test should also be repeated in about 4 weeks. Bring these discharge instructions with you to that visit. 2. Otherwise keep your other appointments as already scheduled including with your psychiatrist on 09/23, etc. 3. Stop all tobacco use AKIRA as directed/per provided information and consider contacting Quit LIne, etc.. 4. Immediately after this visit verify that your cellular telephone's voicemail has been activated and is empty. Also verify that your home telephone's answering machine is operating properly and has space to receive messages. Note that it is sometimes necessary for us to be able to contact you at a later date to discuss your medical care. 5. Please remember that we are ALWAYS here for you and want to answer any questions you may have. Feel free to call the hospital any time and we call you back AKIRA. Sepsis Event Note (ED) - Evaluation Sepsis Screening Result: No Definite Risk - Focused Exam Vital Signs: Vital Signs Temp Pulse Resp BP Pulse Ox 09/12/20 20:39 80 16 110/61 79 L 09/12/20 20:24 86 16 130/71 100 09/12/20 19:48 36.8 C 89 16 134/66 98 - Problem List & Annotations (1) Anemia SNOMED Code(s): 176700219 Code(s): D64.9 - ANEMIA, UNSPECIFIED Status: Acute Priority: Medium Current Visit: Yes Onset Date: 05/31/20 Annotation/Comment:: Stable per medical records with no evidence of acute bleeding, etc. Observe for now. Further work-up by regular provider depending on her clinical course. Qualifiers: Anemia type: unspecified type Qualified Code(s): D64.9 - Anemia, unspecified (2) Hyponatremia SNOMED Code(s): 44294326 Code(s): E87.1 - HYPO-OSMOLALITY AND HYPONATREMIA Status: Acute Priority: Medium Current Visit: Yes Onset Date: 05/31/20 Annotation/Comment:: Note current sodium chloride supplementation with no significant hyponatremia at this time. She apparently has a 24-hour urine scheduled for collection in the near future by her regular provider. No clinical evidence of CHF. (3) Leukocytosis SNOMED Code(s): 009167209, 327834752 Code(s): D72.829 - ELEVATED WHITE BLOOD CELL COUNT, UNSPECIFIED Status: Acute Priority: Medium Current Visit: Yes Onset Date: 09/12/20 Annotation/Comment:: No fever or source of infection. Patient did get her influenza booster this season. Close follow-up by regular provider as per discharge instructions. Urine specimen sent for culture and sensitivity with no evidence of infection by today's UA. Qualifiers: Leukocytosis type: bandemia Qualified Code(s): D72.825 - Bandemia (4) Mixed anxiety depressive disorder SNOMED Code(s): 419037507 Code(s): F41.8 - OTHER SPECIFIED ANXIETY DISORDERS Status: Chronic Priority: High Current Visit: Yes Annotation/Comment:: Moderately poor control based on today's evaluation. Note multiple recent medication adjustments including initiation of lithium during her recent psychiatric hospitalization in July. The patient does have a follow-up appointment scheduled with her psychiatrist on 09/23 by her history. Emotional support was provided. Note history of bipolar and schizoaffective disorder with additional history of illicit drug and alcohol abuse, however negative alcohol level and drug screen at this time. (5) Asthma SNOMED Code(s): 225985192 Code(s): J45.909 - UNSPECIFIED ASTHMA, UNCOMPLICATED Status: Chronic Priority: Medium Current Visit: Yes Annotation/Comment:: No recent fever or bronchitic type symptoms. Stable by history. Note current tobacco and previous marijuana use. Qualifiers: Asthma severity: mild Asthma persistence: intermittent Asthma complication type: with status asthmaticus Qualified Code(s): J45.22 - Mild intermittent asthma with status asthmaticus (6) Tobacco abuse counseling SNOMED Code(s): 453658983, 544942095, 300122729 Code(s): Z71.6 - TOBACCO ABUSE COUNSELING Status: Chronic Priority: Medium Current Visit: Yes Annotation/Comment:: Tobacco cessation AKIRA once again strongly encouraged after stabilization of her emotional status with information provided prior to discharge. - Problem List Review Problem List Initiated/Reviewed/Updated: Yes - My Orders Last 24 Hours: My Active Orders 09/12/20 20:06 Cardiac Monitoring [RC] . DIRECTED Obtain Past Medical Record [OM.PC] Routine 09/12/20 20:46 CULTURE URINE [RM] Routine - Assessment/Plan Last 24 Hours: My Active Orders 09/12/20 20:06 Cardiac Monitoring [RC] . DIRECTED Obtain Past Medical Record [OM.PC] Routine 09/12/20 20:46 CULTURE URINE [RM] Routine Assessment:: As above Plan: As above. Extensive precautions were given to the patient, who is in agreement with the treatment plan. See Patient Instructions for further treatment and plan.
[2020-09-12 20:34] LABS: BARBITURATE SCREEN,URINE NEGATIVE (NEGATIVE); BENZODIAZEPINES SCREEN,URINE NEGATIVE (NEGATIVE); EDDP,URINE SCREEN NEGATIVE (NEGATIVE); TCA SCREEN,URINE NEGATIVE (NEGATIVE); THC SCREEN,URINE 50 NG/ML NEGATIVE (NEGATIVE)
[2020-09-12 20:46] LABS: CHLORIDE,CL 101 mmol/L (98-107); SODIUM,NA 136 mmol/L (136-145)
== END 2020-09-12 21:15 | disposition home or self-care (01) ==
LOC: LL.ED 19:46
DX: E87.1 Hypo-osmolality and hyponatremia (principal); J45.909 Unspecified asthma, uncomplicated; F41.8 Other specified anxiety disorders; D64.9 Anemia, unspecified; D72.829 Elevated white blood cell count, unspecified; F17.210 Nicotine dependence, cigarettes, uncomplicated; F41.9 Anxiety disorder, unspecified; F31.9 Bipolar disorder, unspecified; F20.9 Schizophrenia, unspecified; E66.9 Obesity, unspecified; Z68.32 Body mass index [BMI] 32.0-32.9, adult; Z79.899 Other long term (current) drug therapy
CPT/HCPCS: 36415; 80053; 80305-QW; 80307; 81001; 83735; 84443; 85025; 87086; 99283

== ENCOUNTER 2020-09-16 03:28 | Emergency (ER) | payer MEDICAID ==
[2020-09-16] MEDS ORDERED: LORazepam 2 MG/ML SDV IM ONE (03:47)
[2020-09-16] MEDS ORDERED: Haloperidol Lactate 5 MG/ML SDV IM ONE (03:47)
[2020-09-16] MEDS ORDERED: diphenhydrAMINE 50 MG/ML SDV IM ONE (03:47)
[2020-09-16] MEDS ORDERED: OLANZapine 10 MG Tab PO ONE (04:16)
[2020-09-16 04:21] LABS: CHLORIDE,CL 102 mmol/L (98-107); SODIUM,NA 136 mmol/L (136-145)
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
== END 2020-09-16 04:30 | disposition left against medical advice (07) ==
LOC: LL.ED 03:28
DX: F20.9 Schizophrenia, unspecified (principal); F31.9 Bipolar disorder, unspecified; J45.909 Unspecified asthma, uncomplicated; E66.9 Obesity, unspecified; Z79.899 Other long term (current) drug therapy
CPT/HCPCS: 36415; 80053; 80307; 84703; 85025; 96372; 99283; 99284; A9270-GY; J1200; J1630; J2060

== ENCOUNTER 2020-10-19 19:02 | Emergency (ER) | payer MEDICAID ==
--- NOTE | 2020-10-19 19:17 | EDM.PDOC ---
ED HPI GENERAL MEDICAL PROBLEM - General Chief Complaint: Behavioral/Psych Stated Complaint: SOB/psych Time Seen by Provider: 10/19/20 19:17 Source of Information: Reports: Patient, Old Records ([facility] EMR. No paper hospital chart available.) History Limitations: Reports: Altered Mental Status - History of Present Illness INITIAL COMMENTS - FREE TEXT/NARRATIVE: Patient was brought to the emergency room via ambulance with master plumber accompaniment with no treatment in route. Patient has had an apparent decompensation of her bipolar and schizophrenic disorder during the last 48-72 hours, which were exacerbated earlier today secondary to problems in setting up her new mobile telephone?. No apparent suicidal ideation at this time with possibility of both auditory and visual hallucinations, however patient is extremely poor historian secondary to her fragmented thoughts, etc.. No recent history of abdominal pain, heartburn, nausea, diarrhea, melena, gross hematochezia, or any food intolerance, including fatty foods, etc.. She denies any gross hematuria, colic, or UTI symptoms. The patient also denies any recent fever, cough, wheezing, dyspnea, etc.. She denies any other specific pain or discomfort at this time. Onset: Unknown/Unsure Duration: Getting Worse Quality: Reports: Same as Previous Episode, Other (As above) Severity: Severe (Decompensation of her emotional status as above) Associated Symptoms: Reports: Confusion (Secondary to her emotional status). Denies: Chest Pain, Cough, Diaphoresis, Fever/Chills, Nausea/Vomiting, Seizure, Shortness of Breath, Weakness Treatments GEAR KEEPER: Reports: Other (see below) (None) - Related Data Allergies Allergy/AdvReac Type Severity Reaction Status Date / Time No Known Allergies Allergy Verified 10/19/20 19:46 Home Meds: Home Meds Divalproex Sodium 1,500 mg PO BEDTIME 05/31/20 [History] Multivitamins,Ther w-Minerals [Multivitamins with Minerals HP] 1 tab PO DAILY 05/31/20 [History] OLANZapine [Olanzapine] 20 mg PO BEDTIME 05/31/20 [History] hydrOXYzine pamoate [Vistaril] 25 mg PO TID 05/31/20 [History] Albuterol Sulfate [Proair Respiclick] 2 puff IH Q4HR PRN 07/23/20 [History] Propranolol [Inderal] 20 mg PO BEDTIME 09/12/20 [History] ARIPiprazole [Abilify] 1 tab PO DAILY 10/19/20 [History] Carboxymethylcellulose Sodium [Artificial Tears] 1 drop EYEBOTH BID PRN 10/19/20 [History] Docusate Sodium [Colace] 100 mg PO BID PRN 10/19/20 [History] Melatonin/Pyridoxine HCl (B6) [Melatonin 5 mg Tablet] 1 tab PO BEDTIME PRN 10/19/20 [History] SUMAtriptan [Imitrex] 2 tab PO DAILY PRN 10/19/20 [History] Past Medical History HEENT History: Reports: Allergic Rhinitis, Impaired Vision, Other (See Below) Other HEENT History: The patient wears glasses and soft contact lenses. 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 1 elective SAB and an additional regular SAB. Musculoskeletal History: Reports: Arthritis, Osteoarthritis Neurological History: Reports: Headaches, Chronic, Migraines Psychiatric History: Reports: Addiction, Anxiety, Bipolar, Depression, Hallucinations, Panic Attack, Psych Hospitalization(s), Psychosis, Schizophrenia, Other (See Below) Other Psychiatric History: Recent psychiatric treatment in [place] in July 2020 with 1 week of inpatient hospitalization required. Additional previous psychiatric, alcohol, and drug treatment at [facility] in [place] in May 2020. Note previous diagnosis of schizoaffective and bipolar disorders. Endocrine/Metabolic History: Reports: Obesity/BMI 30+, Other (See Below) Other Endocrine/Metabolic History: Hyponatremia. Hematologic History: Reports: Anemia, Other (See Below) Other Hematologic History: Microcytic anemia of unknown etiology. - Past Surgical History Female Surgical History: Reports: D&C, Dilitation & Evacuation, Other (See Below) Other Female Surgeries/Procedures: SABs as above. - History Comment History Comment: Incomplete history with patient somewhat poor historian secondary to her anxiety, etc. Social & Family History - Family History Family Medical History: Unobtainable - Tobacco Use Tobacco Use Status *Q: Current Every Day Tobacco User Tobacco Use Within Last Twelve Months: Cigarettes Years of Tobacco use: 33 Packs/Tins Daily: 1 Packs/Tins Daily Comment: Patient started smoking at age 17 with maximum use of 1.5 packs/day. Used Tobacco, but Quit: No Smoking Cessation Information Provided To Patient: No (Patient transfer) Second Hand Smoke Exposure: No Second Hand Smoke Education Provided: No - Caffeine Use Caffeine Use: Reports: Coffee (1 cup/day), Soda (2 sodas per day), Tea (2 cups/day). Denies: Energy Drinks - Alcohol Use Alcohol Use History: Yes Days Per Week of Alcohol Use: 0 Number of Drinks Per Day: 5 Number of Drinks Per Day Comment: Usually mixed drinks. Previous history of alcohol abuse and treatment as above with no known history of DWI. Total Drinks Per Week: 0 Alcohol Use in Last Twelve Months: Yes Alcohol Use Frequency: Binges - Recreational Drug Use Recreational Drug Use: Yes Drug Use in Last 12 Months: Yes Recreational Drug Type: Reports: Amphetamines (Speed) (Experimental in 2019.), Marijuana/Hashish (Daily use since age 17.), Methamphetamine (As above). 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 ED EXAM, GENERAL - Physical Exam Exam: See Below Exam Limited By: No Limitations General Appearance: Alert, WD/WN, Anxious (Moderate to severe), Mild Distress (Secondary to anxiety) Head: Atraumatic, Normocephalic Neck: Normal Inspection, Supple, Non-Tender, Full Range of Motion. No: Lymphadenopathy (L), Lymphadenopathy (R), Thyromegaly Respiratory/Chest: No Respiratory Distress, Lungs Clear, Normal Breath Sounds, No Accessory Muscle Use, Chest Non-Tender. No: Pleural Rub, Retractions Cardiovascular: Normal Peripheral Pulses, Regular Rate, Rhythm, No Edema, No Gallop, No JVD, No Murmur, No Rub. No: Gallop/S3, Gallop/S4, Friction Rub Peripheral Pulses: 2+: Radial (L), Radial (R) GI/Abdominal: Normal Bowel Sounds, Soft, Non-Tender, No Organomegaly, No Distention, No Abnormal Bruit, No Mass, Other (Obese). No: Guarding (Female) Exam: Deferred Rectal (Female) Exam: Deferred Back Exam: Normal Inspection, Full Range of Motion. No: CVA Tenderness (L), CVA Tenderness (R) Extremities: Normal Inspection, Normal Range of Motion, Non-Tender, No Pedal Edema, Normal Capillary Refill. No: Kiran's Sign Neurological: Alert, Oriented, CN II-XII Intact, Normal Cognition, Normal Gait, Normal Reflexes, No Motor/Sensory Deficits Psychiatric: Anxious (Moderate to severe), Depressed Mood ( mild to moderate with adequate eye contact and no suicidal ideation). No: Tearful Skin Exam: Warm, Dry, Intact, Normal Color, No Rash. No: Diaphoretic Lymphatic: No Adenopathy Course - Vital Signs Last Recorded V/S: Last Vital Signs Temp 36.4 C 10/19/20 20:00 Pulse 76 10/19/20 20:00 Resp 15 10/19/20 20:00 BP 115/79 10/19/20 20:00 Pulse Ox 100 10/19/20 20:00 Vital Signs - 24 hr 10/19/20 10/19/20 19:05 20:00 Temperature [ 36.6 C 36.4 C Temporal] Pulse, 89 76 Peripheral [ Pulse Oximetry] Respiratory 22 H 15 Rate Blood Pressure 128/74 115/79 [Left Upper Arm ] O2 Sat by Pulse 98 100 Oximetry - Orders/Labs/Meds Orders: Active Orders 24 hr Category Date Time Status Cardiac Monitoring [RC] . DIRECTED Care 10/19/20 19:34 Active Peripheral IV Care [RC] . DIRECTED Care 10/19/20 19:18 Active Sodium Chloride 0.9% [Saline Flush] Med 10/19/20 19:17 Active 10 ml FLUSH ASDIRECTED PRN Obtain Past Medical Record [OM.PC] Routine Oth 10/19/20 19:18 Active Peripheral IV Insertion Adult [OM.PC] Routine Oth 10/19/20 19:18 Ordered Medication Orders Sodium Chloride (Saline Flush) 10 ml FLUSH ASDIRECTED PRN PRN Reason: Keep Vein Open Last Admin: 10/19/20 19:53 Dose: 10 ml Documented by: Admin: 10/19/20 19:24 Dose: 10 ml Documented by: DAVID Labs: Laboratory Tests 10/19/20 10/19/20 10/19/20 Range/Units 19:35 19:46 19:46 WBC 10.9 H (4.0-10.2) K/uL RBC 3.68 L (3.77-5.09) M/uL Hgb 11.7 D (11.7-15.5) g/dL Hct 34.9 (34.0-46.0) % MCV 94.8 D (84.0-98.0) fL MCH 31.8 (28.2-33.3) pg MCHC 33.5 (31.7-36.0) g/dL RDW 11.7 (11.2-14.1) % Plt Count 323 (150-350) K/uL Neut % (Auto) 50.3 (45.0-80.0) % Lymph % (Auto) 40.0 (10.0-50.0) % [place] % (Auto) 9.2 (2.0-14.0) % Eos % (Auto) 0.2 (0.0-5.0) % Baso % (Auto) 0.3 (0.0-2.0) % Neut # (Auto) 5.46 (1.40-7.00) K/uL Lymph # (Auto) 4.34 H (0.50-3.50) K/uL [place] # (Auto) 1.00 (0.00-1.00) K/uL Eos # (Auto) 0.02 (0.00-0.50) K/uL Baso # (Auto) 0.03 (0.00-0.20) K/uL Sodium 134 L (136-145) mmol/L Potassium 3.8 (3.5-5.1) mmol/L Chloride 96 L (98-107) mmol/L Carbon Dioxide 26.4 (21.0-32.0) mmol/L BUN 7 (7-18) mg/dL Creatinine 0.62 (0.51-1.17) mg/dL Est Cr Clr Drug Dosing TNP Estimated GFR (MDRD) > 60 mL/min Glucose 96 (74-106) mg/dL Calcium 9.7 (8.5-10.1) mg/dL Total Bilirubin 0.2 (0.2-1.0) mg/dL AST 9 L (15-37) U/L ALT 17 (12-78) U/L Alkaline Phosphatase 51 (46-116) IU/L Total Protein 7.4 (6.4-8.2) g/dL Albumin 3.7 (3.4-5.0) g/dL TSH, Ultra Sensitive 3.838 H (0.358-3.740) mIU/mL HCG, Qual (NEGATIVE) Urine Opiates Screen Negative (NEGATIVE) Ur Buprenorphine Scrn Negative (NEGATIVE) Ur Oxycodone Screen Negative (NEGATIVE) Ur EDDP (Meth Metab) Negative (NEGATIVE) Ur Barbiturates Screen Negative (NEGATIVE) Ur Tricyclics Screen Negative (NEGATIVE) Ur Amphetamine Screen Negative (NEGATIVE) U Methamphetamines Scrn Negative (NEGATIVE) Urine MDMA Screen Negative (NEGATIVE) U Benzodiazepines Scrn Negative (NEGATIVE) U Cocaine Metab Screen Negative (NEGATIVE) U Marijuana (THC) Screen Negative (NEGATIVE) Ethyl Alcohol 0.000 (0.000-0.080) g/dL 10/19/20 Range/Units 19:46 WBC (4.0-10.2) K/uL RBC (3.77-5.09) M/uL Hgb (11.7-15.5) g/dL Hct (34.0-46.0) % MCV (84.0-98.0) fL MCH (28.2-33.3) pg MCHC (31.7-36.0) g/dL RDW (11.2-14.1) % Plt Count (150-350) K/uL Neut % (Auto) (45.0-80.0) % Lymph % (Auto) (10.0-50.0) % [place] % (Auto) (2.0-14.0) % Eos % (Auto) (0.0-5.0) % Baso % (Auto) (0.0-2.0) % Neut # (Auto) (1.40-7.00) K/uL Lymph # (Auto) (0.50-3.50) K/uL [place] # (Auto) (0.00-1.00) K/uL Eos # (Auto) (0.00-0.50) K/uL Baso # (Auto) (0.00-0.20) K/uL Sodium (136-145) mmol/L Potassium (3.5-5.1) mmol/L Chloride (98-107) mmol/L Carbon Dioxide (21.0-32.0) mmol/L BUN (7-18) mg/dL Creatinine (0.51-1.17) mg/dL Est Cr Clr Drug Dosing Estimated GFR (MDRD) mL/min Glucose (74-106) mg/dL Calcium (8.5-10.1) mg/dL Total Bilirubin (0.2-1.0) mg/dL AST (15-37) U/L ALT (12-78) U/L Alkaline Phosphatase (46-116) IU/L Total Protein (6.4-8.2) g/dL Albumin (3.4-5.0) g/dL TSH, Ultra Sensitive (0.358-3.740) mIU/mL HCG, Qual Negative (NEGATIVE) Urine Opiates Screen (NEGATIVE) Ur Buprenorphine Scrn (NEGATIVE) Ur Oxycodone Screen (NEGATIVE) Ur EDDP (Meth Metab) (NEGATIVE) Ur Barbiturates Screen (NEGATIVE) Ur Tricyclics Screen (NEGATIVE) Ur Amphetamine Screen (NEGATIVE) U Methamphetamines Scrn (NEGATIVE) Urine MDMA Screen (NEGATIVE) U Benzodiazepines Scrn (NEGATIVE) U Cocaine Metab Screen (NEGATIVE) U Marijuana (THC) Screen (NEGATIVE) Ethyl Alcohol (0.000-0.080) g/dL Meds: Medications Generic Name Dose Route Start Last Admin Trade Name Freq PRN Reason Stop Dose Admin Sodium Chloride 10 ml 10/19/20 19:17 10/19/20 19:53 Saline Flush FLUSH 10 ml ASDIRECTED PRN Administration Keep Vein Open Discontinued Medications Generic Name Dose Route Start Last Admin Trade Name Freq PRN Reason Stop Dose Admin Diazepam 2.5 mg 10/19/20 19:18 10/19/20 19:22 Valium IVPUSH 10/19/20 19:19 2.5 mg ONETIME ONE Administration Haloperidol Lactate 1 mg 10/19/20 19:34 10/19/20 19:52 Haldol IVPUSH 10/19/20 19:35 1 mg ONETIME ONE Administration - Radiology Interpretation Free Text/Narrative:: None Departure - Departure Time of Disposition: 20:35 Disposition: Against Medical Advice 07 Condition: Fair Clinical Impression: Mixed anxiety depressive disorder, Asthma, Anemia, Tobacco abuse counseling, Hypothyroidism (acquired), Hyponatremia - Discharge Information *PRESCRIPTION DRUG MONITORING PROGRAM REVIEWED*: Not Applicable *COPY OF PRESCRIPTION DRUG MONITORING REPORT IN PATIENT PAULINE: Not Applicable Referrals: Iqra Roldan PA-C [Primary Care Provider] - Forms: ED Department Discharge Additional Instructions: Patient left AMA Sepsis Event Note (ED) - Focused Exam Vital Signs: Vital Signs Temp Pulse Resp BP Pulse Ox 10/19/20 20:00 36.4 C 76 15 115/79 100 10/19/20 19:05 36.6 C 89 22 H 128/74 98 - Problem List & Annotations (1) Mixed anxiety depressive disorder SNOMED Code(s): 380916609 Code(s): F41.8 - OTHER SPECIFIED ANXIETY DISORDERS Status: Chronic Priority: High Annotation/Comment:: Extremely poor control based on today's evaluation with patient not able to safely go home at this time and possibly a danger to herself and others secondary to her current psychotic and emotional status. Initially the patient was agreeable to be admitted to [facility] in [place]. Note that I was on the phone with that facility at 8 PM trying to arrange transfer when I received a call from the nurse that the patient had left AMA with her mother. Her mother apparently was willing to accept responsibility for the patient. Initially I had told the patient that she should follow-up with her regular provider AKIRA for psychiatric referral and medication adjustment prior to her wanting to go to [facility] in [place] for admission as above. Note multiple recent medication adjustments by her history with apparent psychiatric appointment scheduled for next week, which should no longer be delayed at this time. Patient has had emergency room visits in this facility on 09/12 and 09/16/2020 for similar type symptoms. She is an extremely poor historian secondary to her current bipolar decompensation. Apparent previous psychiatric hospitalization in July 2020. Note additional history of illicit drug and alcohol abuse, however not recently by patient history. Note negative drug and alcohol screens today. (2) Asthma SNOMED Code(s): 896066137 Code(s): J45.909 - UNSPECIFIED ASTHMA, UNCOMPLICATED Status: Chronic Priority: Medium Annotation/Comment:: No recent fever or bronchitic type symptoms. Stable by history. Note current tobacco and previous marijuana use. Qualifiers: Asthma severity: mild Asthma persistence: intermittent Asthma complication type: with status asthmaticus Qualified Code(s): J45.22 - Mild intermittent asthma with status asthmaticus (3) Tobacco abuse counseling SNOMED Code(s): 880118879, 836225256, 925772661 Code(s): Z71.6 - TOBACCO ABUSE COUNSELING Status: Chronic Priority: Medium Annotation/Comment:: Tobacco cessation AKIRA once again strongly encouraged after stabilization of her emotional status with information provided prior to discharge. (4) Anemia SNOMED Code(s): 637903883 Code(s): D64.9 - ANEMIA, UNSPECIFIED Status: Acute Priority: Medium Onset Date: 05/31/20 Annotation/Comment:: History of microcytic anemia with no apparent recent abdominal complaints, etc.. She has apparently not had a menses for quite some time secondary to her current psychiatric medications, although our records do show that she probably had a menses in late August? Further work-up by regular provider depending on her clinical course. Hemoglobin actually improved from last ER evaluation in this facility. Qualifiers: Anemia type: unspecified type Qualified Code(s): D64.9 - Anemia, unspecified (5) Hypothyroidism (acquired) SNOMED Code(s): 284957676 Code(s): E03.9 - HYPOTHYROIDISM, UNSPECIFIED Status: Chronic Priority: Medium Onset Date: 09/12/20 Annotation/Comment:: Borderline hypothyroidism with actually improved TSH since last evaluation on 09/12/2020. No current medical therapy. Observe for now especially in light of her psychiatric status. (6) Hyponatremia SNOMED Code(s): 44211461 Code(s): E87.1 - HYPO-OSMOLALITY AND HYPONATREMIA Status: Acute Priority: Medium Onset Date: 05/31/20 Annotation/Comment:: Note previous sodium chloride supplementation with no significant hyponatremia at this time. History of recurrent hyponatremia possibly secondary to her psychiatric medications. No clinical evidence of CHF. Continue to observe closely by her regular providers. - Problem List Review Problem List Initiated/Reviewed/Updated: Yes - My Orders Last 24 Hours: My Active Orders 10/19/20 19:17 Sodium Chloride 0.9% [Saline Flush] 10 ml FLUSH ASDIRECTED PRN 10/19/20 19:18 Peripheral IV Care [RC] . DIRECTED Obtain Past Medical Record [OM.PC] Routine Peripheral IV Insertion Adult [OM.PC] Routine 10/19/20 19:34 Cardiac Monitoring [RC] . DIRECTED - Assessment/Plan Last 24 Hours: My Active Orders 10/19/20 19:17 Sodium Chloride 0.9% [Saline Flush] 10 ml FLUSH ASDIRECTED PRN 10/19/20 19:18 Peripheral IV Care [RC] . DIRECTED Obtain Past Medical Record [OM.PC] Routine Peripheral IV Insertion Adult [OM.PC] Routine 10/19/20 19:34 Cardiac Monitoring [RC] . DIRECTED Assessment:: As above Plan: As above. Extensive precautions were given to the patient, who is in agreement with the treatment plan. See Patient Instructions for further treatment and plan.
[2020-10-19] MEDS: Sodium Chloride 0.9% 10 ML Syringe FLUSH PRN ×2 (19:24→19:53)
[2020-10-19] MEDS ORDERED: Haloperidol Lactate 5 MG/ML SDV IVPUSH ONE (19:34)
[2020-10-19 20:05] LABS: BARBITURATE SCREEN,URINE NEGATIVE (NEGATIVE); BENZODIAZEPINES SCREEN,URINE NEGATIVE (NEGATIVE); EDDP,URINE SCREEN NEGATIVE (NEGATIVE); TCA SCREEN,URINE NEGATIVE (NEGATIVE); THC SCREEN,URINE 50 NG/ML NEGATIVE (NEGATIVE)
[2020-10-19 20:21] LABS: CHLORIDE,CL 96 mmol/L (98-107); SODIUM,NA 134 mmol/L (136-145)
== END 2020-10-19 20:35 | disposition left against medical advice (07) ==
LOC: LL.ED 19:02
DX: F41.8 Other specified anxiety disorders (principal); J45.909 Unspecified asthma, uncomplicated; D64.9 Anemia, unspecified; Z71.6 Tobacco abuse counseling; E03.9 Hypothyroidism, unspecified; E87.1 Hypo-osmolality and hyponatremia; Z79.899 Other long term (current) drug therapy; E66.9 Obesity, unspecified; Z72.0 Tobacco use
CPT/HCPCS: 36415; 80053; 80305-QW; 80307; 84443; 84703; 85025; 96374; 96375; 99284; 99285-25; J1630; J3360

== ENCOUNTER 2020-12-06 15:55 | Emergency (ER) | payer MEDICAID ==
[2020-12-06 16:44] LABS: CHLORIDE,CL 92 mmol/L (98-107); SODIUM,NA 129 mmol/L (136-145)
[2020-12-06] MEDS ORDERED: LORazepam 2 MG/ML SDV IM ONE (16:46)
--- NOTE | 2020-12-06 16:53 | EDM.PDOCBH ---
ED HPI GENERAL MEDICAL PROBLEM - General Chief Complaint: Behavioral/Psych Stated Complaint: Sofía, Bipolar, Anxiety Time Seen by Provider: 12/06/20 16:05 Source of Information: Reports: Patient, Family History Limitations: Reports: Altered Mental Status - History of Present Illness INITIAL COMMENTS - FREE TEXT/NARRATIVE: Pt with hx/o bipolar issues and has issues with sofía every month to 6 weeks even on medication Has been seen in ER multipple times Has been seen at [facility] and [facility] in the past as well Has been having increased sofía for past several days Contacted usual provider today but couldn't get in so came to ER Onset: Gradual Duration: Day(s):, Getting Worse Location: Reports: Generalized - Related Data Allergies Allergy/AdvReac Type Severity Reaction Status Date / Time No Known Allergies Allergy Verified 10/19/20 19:46 Home Meds: Home Meds Divalproex Sodium 2,000 mg PO BEDTIME 05/31/20 [History] Multivitamins,Ther w-Minerals [Multivitamins with Minerals HP] 1 tab PO DAILY 05/31/20 [History] OLANZapine [Olanzapine] 20 mg PO BEDTIME 05/31/20 [History] hydrOXYzine pamoate [Vistaril] 50 mg PO TID@08,14,20 05/31/20 [History] Albuterol Sulfate [Proair Respiclick] 2 puff IH Q4HR PRN 07/23/20 [History] ARIPiprazole [Abilify] 30 mg PO DAILY 10/19/20 [History] Carboxymethylcellulose Sodium [Artificial Tears] 1 drop EYEBOTH BID PRN 10/19/20 [History] Docusate Sodium [Colace] 100 mg PO BID PRN 10/19/20 [History] SUMAtriptan [Imitrex] 2 tab PO DAILY PRN 10/19/20 [History] Melatonin 5 mg PO BEDTIME PRN 12/06/20 [History] Past Medical History HEENT History: Reports: Allergic Rhinitis, Impaired Vision, Other (See Below) Other HEENT History: The patient wears glasses and soft contact lenses. Respiratory History: Reports: Asthma CHILDCARE PROVIDER History: Reports: , Spontaneous Other CHILDCARE PROVIDER History: LMP in late August per our medical records. 1 elective SAB and an additional regular SAB. Musculoskeletal History: Reports: Arthritis, Osteoarthritis Neurological History: Reports: Headaches, Chronic, Migraines Psychiatric History: Reports: Addiction, Anxiety, Bipolar, Depression, Hallucinations, Panic Attack, Psych Hospitalization(s), Psychosis, Schizophrenia, Other (See Below) Other Psychiatric History: Recent psychiatric treatment in [place] in July 2020 with 1 week of inpatient hospitalization required. Additional previous psychiatric, alcohol, and drug treatment at [facility] in May 2020. Note previous diagnosis of schizoaffective and bipolar disorders. Endocrine/Metabolic History: Reports: Obesity/BMI 30+, Other (See Below) Other Endocrine/Metabolic History: Hyponatremia. Hematologic History: Reports: Anemia, Other (See Below) Other Hematologic History: Microcytic anemia of unknown etiology. - Past Surgical History Female Surgical History: Reports: D&C, Dilitation & Evacuation, Other (See Below) Other Female Surgeries/Procedures: SABs as above. - History Comment History Comment: Incomplete history with patient somewhat poor historian secondary to her anxiety, etc. 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.) ED ROS GENERAL - Review of Systems Review Of Systems: See Below Constitutional: Reports: No Symptoms HEENT: Reports: No Symptoms Respiratory: Reports: No Symptoms Cardiovascular: Reports: No Symptoms GI/Abdominal: Reports: No Symptoms Musculoskeletal: Reports: No Symptoms Neurological: Reports: No Symptoms Psychiatric: Reports: Agitation, Other (Sofía) ED EXAM, BEHAVIORAL HEALTH - Physical Exam Exam: See Below Exam Limited By: No Limitations General Appearance: Alert, WD/WN, Mild Distress Throat/Mouth: Normal Oropharynx Head: Atraumatic Neck: Supple Respiratory/Chest: Lungs Clear Cardiovascular: Regular Rate, Rhythm GI/Abdominal: Soft, Non-Tender Extremities: Normal Inspection Neurological: Alert, No Motor/Sensory Deficits Psychiatric: Alert, Restless, Agitated, Flight of Ideas COURSE, BEHAVIORAL HEALTH COMP - Course Vital Signs: Last Vital Signs Temp 97.3 F 12/06/20 15:55 Pulse 90 12/06/20 15:55 Resp 20 12/06/20 15:55 BP 137/86 12/06/20 15:55 Pulse Ox 100 12/06/20 15:55 Orders, Labs, Meds: Laboratory Tests 12/06/20 12/06/20 Range/Units 16:10 16:10 WBC 10.0 (4.0-10.2) K/uL RBC 3.85 (3.77-5.09) M/uL Hgb 12.1 (11.7-15.5) g/dL Hct 35.1 (34.0-46.0) % MCV 91.2 D (84.0-98.0) fL MCH 31.4 (28.2-33.3) pg MCHC 34.5 (31.7-36.0) g/dL RDW 11.5 (11.2-14.1) % Plt Count 302 (150-350) K/uL Neut % (Auto) 51.6 (45.0-80.0) % Lymph % (Auto) 39.2 (10.0-50.0) % [place] % (Auto) 8.8 (2.0-14.0) % Eos % (Auto) 0.2 (0.0-5.0) % Baso % (Auto) 0.2 (0.0-2.0) % Neut # (Auto) 5.18 (1.40-7.00) K/uL Lymph # (Auto) 3.93 H (0.50-3.50) K/uL [place] # (Auto) 0.88 (0.00-1.00) K/uL Eos # (Auto) 0.02 (0.00-0.50) K/uL Baso # (Auto) 0.02 (0.00-0.20) K/uL Sodium 129 L (136-145) mmol/L Potassium 4.0 (3.5-5.1) mmol/L Chloride 92 L (98-107) mmol/L Carbon Dioxide 25.2 (21.0-32.0) mmol/L BUN 3 L (7-18) mg/dL Creatinine 0.63 (0.51-1.17) mg/dL Est Cr Clr Drug Dosing TNP Estimated GFR (MDRD) > 60 mL/min Glucose 114 H (70-99) mg/dL Calcium 9.6 (8.5-10.1) mg/dL Total Bilirubin 0.3 (0.2-1.0) mg/dL AST 14 L (15-37) U/L ALT 22 (12-78) U/L Alkaline Phosphatase 56 (46-116) IU/L Total Protein 7.3 (6.4-8.2) g/dL Albumin 3.8 (3.4-5.0) g/dL TSH, Ultra Sensitive 2.200 (0.358-3.740) mIU/mL Medications Discontinued Medications Generic Name Dose Route Start Last Admin Trade Name Freq PRN Reason Stop Dose Admin Lorazepam 1 mg 12/06/20 16:46 Ativan IM 12/06/20 16:47 ONETIME ONE Medical Clearance: 12/06/20 16:51 D/W [facility] Pt to contact [facility] [place] in AM Family with pt will take pt home tonight Pt is not currently threatening to harm self or others Pt given Ativan 1 mg IM in ER Departure - Departure Time of Disposition: 17:00 Disposition: Home, Self-Care 01 Clinical Impression: Sofía Schizophrenia Qualifiers: Schizophrenia type: unspecified Qualified Code(s): F20.9 - Schizophrenia, unspecified - Discharge Information *PRESCRIPTION DRUG MONITORING PROGRAM REVIEWED*: Not Applicable *COPY OF PRESCRIPTION DRUG MONITORING REPORT IN PATIENT PAULINE: Not Applicable Referrals: Iqra Roldan PA-C [Primary Care Provider] - Additional Instructions: Follow up in AM Sepsis Event Note (ED) - Evaluation Sepsis Screening Result: No Definite Risk - Focused Exam Vital Signs: Vital Signs Temp Pulse Resp BP Pulse Ox 12/06/20 15:55 97.3 F 90 20 137/86 100
== END 2020-12-06 17:05 | disposition home or self-care (01) ==
LOC: LL.ED 15:55
DX: F30.9 Manic episode, unspecified (principal); F20.9 Schizophrenia, unspecified; J45.909 Unspecified asthma, uncomplicated; E66.9 Obesity, unspecified; Z79.899 Other long term (current) drug therapy
CPT/HCPCS: 36415; 80053; 84443; 85025; 96372; 99284; J2060

== ENCOUNTER 2020-12-06 20:20 | Emergency (ER) | payer MEDICAID ==
[2020-12-06 21:09] LABS: BARBITURATE SCREEN,URINE NEGATIVE (NEGATIVE); BENZODIAZEPINES SCREEN,URINE POSITIVE (NEGATIVE); EDDP,URINE SCREEN NEGATIVE (NEGATIVE); TCA SCREEN,URINE NEGATIVE (NEGATIVE); THC SCREEN,URINE 50 NG/ML NEGATIVE (NEGATIVE)
--- NOTE | 2020-12-06 21:47 | EDM.PDOCBH ---
ED HPI GENERAL MEDICAL PROBLEM - General Chief Complaint: Behavioral/Psych Stated Complaint: manic episode Time Seen by Provider: 12/06/20 20:30 Source of Information: Reports: Patient, Family History Limitations: Reports: Altered Mental Status - History of Present Illness INITIAL COMMENTS - FREE TEXT/NARRATIVE: Pt was found wander ing outside by passerby Brought to ER via POV in persistent manic state was seen earlier for similar symptoms and treated with Ativan 1 mg IM with improved symptoms Pt wandered away from family and was found wandering outside Has had increased issues with sofía per family with increasing symptoms and multiple ER visits in spite of medication changes as outpt Onset: Gradual Duration: Chronic Location: Reports: Generalized Context: Reports: Other (Sofía) - Related Data Allergies Allergy/AdvReac Type Severity Reaction Status Date / Time No Known Allergies Allergy Verified 10/19/20 19:46 Home Meds: Home Meds Divalproex Sodium 2,000 mg PO BEDTIME 05/31/20 [History] Multivitamins,Ther w-Minerals [Multivitamins with Minerals HP] 1 tab PO DAILY 05/31/20 [History] OLANZapine [Olanzapine] 20 mg PO BEDTIME 05/31/20 [History] hydrOXYzine pamoate [Vistaril] 50 mg PO TID@08,14,20 05/31/20 [History] Albuterol Sulfate [Proair Respiclick] 2 puff IH Q4HR PRN 07/23/20 [History] ARIPiprazole [Abilify] 30 mg PO DAILY 10/19/20 [History] Carboxymethylcellulose Sodium [Artificial Tears] 1 drop EYEBOTH BID PRN 10/19/20 [History] Docusate Sodium [Colace] 100 mg PO BID PRN 10/19/20 [History] SUMAtriptan [Imitrex] 2 tab PO DAILY PRN 10/19/20 [History] Melatonin 5 mg PO BEDTIME PRN 12/06/20 [History] Past Medical History HEENT History: Reports: Allergic Rhinitis, Impaired Vision, Other (See Below) Other HEENT History: The patient wears glasses and soft contact lenses. 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 1 elective SAB and an additional regular SAB. Musculoskeletal History: Reports: Arthritis, Osteoarthritis Neurological History: Reports: Headaches, Chronic, Migraines Psychiatric History: Reports: Addiction, Anxiety, Bipolar, Depression, Hallucinations, Panic Attack, Psych Hospitalization(s), Psychosis, Schizophrenia, Other (See Below) Other Psychiatric History: Recent psychiatric treatment in [place] in July 2020 with 1 week of inpatient hospitalization required. Additional previous psychiatric, alcohol, and drug treatment at [facility] in [place] in May 2020. Note previous diagnosis of schizoaffective and bipolar disorders. Endocrine/Metabolic History: Reports: Obesity/BMI 30+, Other (See Below) Other Endocrine/Metabolic History: Hyponatremia. Hematologic History: Reports: Anemia, Other (See Below) Other Hematologic History: Microcytic anemia of unknown etiology. - Past Surgical History Female Surgical History: Reports: D&C, Dilitation & Evacuation, Other (See Below) Other Female Surgeries/Procedures: SABs as above. - History Comment History Comment: Incomplete history with patient somewhat poor historian secondary to her anxiety, etc. 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.) ED ROS GENERAL - Review of Systems Review Of Systems: See Below Constitutional: Reports: No Symptoms HEENT: Reports: No Symptoms Respiratory: Reports: No Symptoms Cardiovascular: Reports: No Symptoms GI/Abdominal: Reports: No Symptoms Musculoskeletal: Reports: No Symptoms Skin: Reports: No Symptoms Neurological: Reports: No Symptoms Psychiatric: Reports: Agitation, Anxiety, Mood Lability, Other (Sofía) ED EXAM, BEHAVIORAL HEALTH - Physical Exam Exam: See Below Exam Limited By: Altered Mental Status General Appearance: Alert, WD/WN, Mild Distress Eye Exam: Bilateral Eye: EOMI Ears: Normal External Exam Nose: Normal Inspection Throat/Mouth: Normal Oropharynx Head: Atraumatic Neck: Supple Respiratory/Chest: Lungs Clear Cardiovascular: Regular Rate, Rhythm GI/Abdominal: Soft, Non-Tender Extremities: Normal Inspection Neurological: Alert, No Motor/Sensory Deficits Psychiatric: Alert, Restless, Agitated, Flight of Ideas, Pressured Speech, Other (Sofía) COURSE, BEHAVIORAL HEALTH COMP - Course Orders, Labs, Meds: Active Orders 24 hr Category Date Time Status CORONAVIRUS COVID-19 AG [CHEM] Stat Lab 12/06/20 21:33 Ordered SALICYLATE [REF] Stat Lab 12/06/20 20:21 Ordered Laboratory Tests 12/06/20 12/06/20 Range/Units 20:43 20:50 Urine Opiates Screen Negative (NEGATIVE) Ur Buprenorphine Scrn Negative (NEGATIVE) Ur Oxycodone Screen Negative (NEGATIVE) Ur EDDP (Meth Metab) Negative (NEGATIVE) Acetaminophen 0.0 L (10.0-30.0) ug/mL Ur Barbiturates Screen Negative (NEGATIVE) Ur Tricyclics Screen Negative (NEGATIVE) Ur Amphetamine Screen Negative (NEGATIVE) U Methamphetamines Scrn Negative (NEGATIVE) Urine MDMA Screen Negative (NEGATIVE) U Benzodiazepines Scrn Positive H (NEGATIVE) U Cocaine Metab Screen Negative (NEGATIVE) U Marijuana (THC) Screen Negative (NEGATIVE) Ethyl Alcohol 0.000 (0.000-0.080) g/dL Discharge vs Psych Eval/Treatment:: 12/06/20 21:45 See lab D/W [facility] Bautista [facility] Will accept in transfer Request that pt be put on psych hold Paperwork completed Pt and family informed of transfer and agree Departure - Departure Time of Disposition: 22:00 Disposition: DC/Tfer to Psych Hosp/Unit 65 Clinical Impression: Schizo affective schizophrenia, Bipolar 1 disorder, Mixed anxiety depressive disorder - Discharge Information *PRESCRIPTION DRUG MONITORING PROGRAM REVIEWED*: Not Applicable *COPY OF PRESCRIPTION DRUG MONITORING REPORT IN PATIENT PAULINE: Not Applicable Referrals: Iqra Roldan PA-C [Primary Care Provider] - - My Orders Last 24 Hours: My Active Orders 12/06/20 20:21 SALICYLATE [REF] Stat 12/06/20 21:33 CORONAVIRUS COVID-19 AG [CHEM] Stat - Assessment/Plan Last 24 Hours: My Active Orders 12/06/20 20:21 SALICYLATE [REF] Stat 12/06/20 21:33 CORONAVIRUS COVID-19 AG [CHEM] Stat
[2020-12-06] MEDS ORDERED: LORazepam 2 MG/ML SDV IM ONE (21:51)
== END 2020-12-06 23:05 ==
LOC: LL.ED 20:20
DX: F20.9 Schizophrenia, unspecified (principal); F41.8 Other specified anxiety disorders; F31.9 Bipolar disorder, unspecified; J45.909 Unspecified asthma, uncomplicated; E66.9 Obesity, unspecified; Z79.899 Other long term (current) drug therapy; Z20.822 Contact with and (suspected) exposure to COVID-19
CPT/HCPCS: 36415; 80143; 80179; 80305; 80307; 87426; 87635; 96372; 99284; J2060; U0002

== ENCOUNTER 2021-01-20 16:51 | Observation (INO) | payer MEDICAID ==
[2021-01-20] MEDS ORDERED: Metoprolol Tartrate 5 MG/5 ML SDV IVPUSH ONE (16:53)
[2021-01-20] MEDS ORDERED: Famotidine 20 MG/2 ML SDV IVPUSH ONE (16:53)
--- NOTE | 2021-01-20 16:53 | EDM.PDOC ---
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 standard rule out SC orders. Further cardiac work-up including Cardiolite stress test, echocardiogram, Holter monitor study, etc. depending on her clinical course. Cardiology consultation as needed. Mild BNP elevation but no clinical evidence of significant CHF. Observe for now. Note mild thrombocytosis and mild leukocytosis likely secondary to stress reaction. No evidence of infection. Urine specimen sent for culture and sensitivity. (2) Complete right bundle branch block SNOMED Code(s): 145029135 Code(s): I45.10 - UNSPECIFIED RIGHT BUNDLE-BRANCH BLOCK Status: Acute Priority: High Current Visit: Yes Onset Date: 01/20/21 Annotation/Comment:: Observe for now (3) Anemia SNOMED Code(s): 000115246 Code(s): D64.9 - ANEMIA, UNSPECIFIED Status: Acute Priority: Medium Current Visit: Yes Onset Date: 05/31/20 Annotation/Comment:: History of microcytic anemia with no apparent recent abdominal complaints, etc.. Work-up in the a.m. with other cardiac labs, etc. as above. High-dose IV Pepcid given as GI prophylaxis with no evidence of acute bleeding, etc. Qualifiers: Anemia type: unspecified type Qualified Code(s): D64.9 - Anemia, unspecified (4) Asthma SNOMED Code(s): 396044387 Code(s): J45.909 - UNSPECIFIED ASTHMA, UNCOMPLICATED Status: Chronic Priority: Medium Current Visit: Yes Annotation/Comment:: No recent fever or bronchitic type symptoms. Stable by history. Note current tobacco and previous marijuana use. Qualifiers: Asthma severity: mild Asthma persistence: intermittent Asthma complication type: with status asthmaticus Qualified Code(s): J45.22 - Mild intermittent asthma with status asthmaticus (5) Hypothyroidism (acquired) SNOMED Code(s): 175750634 Code(s): E03.9 - HYPOTHYROIDISM, UNSPECIFIED Status: Chronic Priority: Medium Current Visit: Yes Onset Date: 09/12/20 Annotation/Comment:: Long history of borderline TSH elevation. Continue to observe for now. No thyroid type symptoms other than tachycardia as above. (6) Mixed anxiety depressive disorder SNOMED Code(s): 651930837 Code(s): F41.8 - OTHER SPECIFIED ANXIETY DISORDERS Status: Chronic Priority: High Current Visit: Yes Annotation/Comment:: Extremely poor control based on today's evaluation. Note recent psychiatric hospitalization at [facility] in [place] in early December 2020. Close observation during this hospitalization possible referral. She is currently undergoing outpatient counseling. No suicidal ideation at this time. Apparent recent multiple medication adjustments. (7) Tobacco abuse counseling SNOMED Code(s): 985062325, 583371684, 287061407 Code(s): Z71.6 - TOBACCO ABUSE COUNSELING Status: Chronic Priority: Medium Current Visit: Yes Annotation/Comment:: Tobacco cessation AKIRA once again strongly encouraged after stabilization of her emotional status with information to be provided prior to discharge. Note that the patient was started on a nitro patch, which she did discontinue on her own. (8) Hypokalemia SNOMED Code(s): 40683268 Code(s): E87.6 - HYPOKALEMIA Status: Acute Priority: Medium Current Visit: Yes Onset Date: 01/20/21 Annotation/Comment:: Initiate potassium supplementation after admission. (9) Peptic reflux disease SNOMED Code(s): 195322968 Code(s): K21.9 - GASTRO-ESOPHAGEAL REFLUX DISEASE WITHOUT ESOPHAGITIS Status: Chronic Priority: Medium Current Visit: Yes Annotation/Comment:: As above - Problem List Review Problem List Initiated/Reviewed/Updated: Yes - My Orders Last 24 Hours: My Active Orders 01/20/21 Breakfast Nothing per Oral Now Diet [DIET] 01/20/21 16:53 Sodium Chloride 0.9% [Saline Flush] 10 ml FLUSH ASDIRECTED PRN Resuscitation Status Stat 01/20/21 16:54 Cardiac Monitoring [RC] . DIRECTED EKG Documentation Completion [RC] ASDIRECTED Oxygen Therapy, ED [RC] PRN Peripheral IV Care [RC] . DIRECTED Pulse Oximetry [RC] CONTINUOUS Up With Assistance [RC] PFP Vital Signs [RC] PFP Chest 1V Frontal [CR] Stat Obtain Past Medical Record [OM.PC] Urgent Peripheral IV Insertion Adult [OM.PC] Stat EKG 12 Lead [EK] Stat 01/20/21 17:23 CULTURE URINE [RM] Routine 01/20/21 18:00 atenoloL [Tenormin] 25 mg PO DAILY - Assessment/Plan Admission H&P: Please use this note as an admission H&P Last 24 Hours: My Active Orders 01/20/21 Breakfast Nothing per Oral Now Diet [DIET] 01/20/21 16:53 Sodium Chloride 0.9% [Saline Flush] 10 ml FLUSH ASDIRECTED PRN Resuscitation Status Stat 01/20/21 16:54 Cardiac Monitoring [RC] . DIRECTED EKG Documentation Completion [RC] ASDIRECTED Oxygen Therapy, ED [RC] PRN Peripheral IV Care [RC] . DIRECTED Pulse Oximetry [RC] CONTINUOUS Up With Assistance [RC] PFP Vital Signs [RC] PFP Chest 1V Frontal [CR] Stat Obtain Past Medical Record [OM.PC] Urgent Peripheral IV Insertion Adult [OM.PC] Stat EKG 12 Lead [EK] Stat 01/20/21 17:23 CULTURE URINE [RM] Routine 01/20/21 18:00 atenoloL [Tenormin] 25 mg PO DAILY Assessment:: As above Plan: As above. Extensive precautions were given to the patient, who is in agreement with the treatment plan. Wolfgang link provider assumes care in the a.m. the patient's condition is stable enough for observation status and general supervision.
[2021-01-20] MEDS: Sodium Chloride 0.9% 10 ML Syringe FLUSH PRN ×3 (17:00→17:12)
[2021-01-20] MEDS ORDERED: Ondansetron 4 MG/2 ML SDV IVPUSH ONE (17:10)
[2021-01-20 17:15] LABS: PTT,PARTIAL THROMBOPLSTIN TIME 27.2 SEC (24.5-32.8)
[2021-01-20 17:28] LABS: CHLORIDE,CL 98 mmol/L (98-107); SODIUM,NA 137 mmol/L (136-145)
[2021-01-20 17:39] LABS: BARBITURATE SCREEN,URINE NEGATIVE (NEGATIVE); BENZODIAZEPINES SCREEN,URINE NEGATIVE (NEGATIVE); EDDP,URINE SCREEN NEGATIVE (NEGATIVE); TCA SCREEN,URINE NEGATIVE (NEGATIVE); THC SCREEN,URINE 50 NG/ML NEGATIVE (NEGATIVE)
[2021-01-20] MEDS ORDERED: Atenolol 25 MG Tab PO SCH (18:00)
[2021-01-20] MEDS ORDERED: Sodium Chloride 0.9% 10 ML Syringe FLUSH PRN (18:42)
[2021-01-20] MEDS ORDERED: Acetaminophen 325 MG Tab PO PRN (18:42)
[2021-01-20] MEDS ORDERED: Polyethylene Glycol 3350 Powder 17 GM Packet PO PRN (18:42)
[2021-01-20] MEDS ORDERED: Potassium Chloride 20 MEQ Tab.ER PO SCH (19:00)
[2021-01-20] MEDS ORDERED: Polyethylene Glycol 3350 Powder 17 GM Packet PO ONE (19:01)
[2021-01-20] MEDS ORDERED: Haloperidol Lactate 5 MG/ML SDV IVPUSH ONE (19:01)
[2021-01-20] MEDS ORDERED: Magnesium Citrate Solution 296 ML Bottle PO ONE (19:01)
[2021-01-20] MEDS ORDERED: Haloperidol Lactate 5 MG/ML SDV IVPUSH PRN (19:53)
[2021-01-20] MEDS ORDERED: CLOZAPINE 100 MG PO SCH (20:00)
[2021-01-20] MEDS ORDERED: hydrOXYzine Pamoate 25 MG Cap PO SCH (20:00)
[2021-01-20] MEDS ORDERED: OLANZapine 10 MG Tab PO SCH (20:00)
[2021-01-20] MEDS ORDERED: Docusate Sodium 100 MG Cap PO SCH (20:00)
[2021-01-20] MEDS ORDERED: Divalproex Sodium Delayed-Release 250 MG Tab.CR PO SCH (20:00)
[2021-01-21] MEDS ORDERED: NORGESTIMATE ETHINYL ESTRADIOL PO SCH (08:00)
[2021-01-21] MEDS ORDERED: Atenolol 25 MG Tab PO SCH (08:00)
[2021-01-21] MEDS ORDERED: LORazepam 1 MG Tab PO SCH (08:00)
== END 2021-01-20 20:40 | disposition left against medical advice (07) ==
LOC: LL.ED 16:51 → LL.MS 18:15
PROVIDERS: ADMIT Family Medicine; ATTEND Family Medicine
DX: R00.0 Tachycardia, unspecified (principal); I45.10 Unspecified right bundle-branch block; D64.9 Anemia, unspecified; J45.909 Unspecified asthma, uncomplicated; E03.9 Hypothyroidism, unspecified; F41.8 Other specified anxiety disorders; E87.6 Hypokalemia; K21.9 Gastro-esophageal reflux disease without esophagitis
CPT/HCPCS: 36415; 71045; 80053; 80305; 80307; 81001; 82550; 82553; 83605; 83735; 83880; 84443; 84484; 84550; 85025; 85379; 85610; 85730; 87086; 93005; A9270; J1630; J2405; J3360; J3490; Q0177

== ENCOUNTER 2021-04-26 23:55 | Emergency (ER) | payer MEDICAID ==
[2021-04-27] MEDS ORDERED: Haloperidol Lactate 5 MG/ML SDV IVPUSH ONE (00:27)
[2021-04-27] MEDS ORDERED: LORazepam 2 MG/ML SDV IVPUSH ONE ×2 (00:28→03:25)
[2021-04-27 00:29] LABS: CHLORIDE,CL 88 mmol/L (98-107)
[2021-04-27 00:30] LABS: ANION GAP 13.5 meq/L (7-15); SODIUM,NA 124 mmol/L (136-145)
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
[2021-04-27] MEDS: Sodium Chloride 0.9% 10 ML Syringe FLUSH PRN ×2 (00:35→03:28)
[2021-04-27 00:54] LABS: BARBITURATE SCREEN,URINE NEGATIVE (NEGATIVE); BENZODIAZEPINES SCREEN,URINE NEGATIVE (NEGATIVE); BUPRENORPHINE SCREEN,URINE NEGATIVE (NEGATIVE); EDDP,URINE SCREEN NEGATIVE (NEGATIVE); TCA SCREEN,URINE NEGATIVE (NEGATIVE); THC SCREEN,URINE 50 NG/ML NEGATIVE (NEGATIVE)
[2021-04-27] MEDS ORDERED: LORazepam 2 MG/ML SDV ONE (03:26)
== END 2021-04-27 03:45 ==
LOC: LL.ED 23:55
DX: F29 Unspecified psychosis not due to a substance or known physiological condition (principal); F41.9 Anxiety disorder, unspecified; F11.10 Opioid abuse, uncomplicated; E87.1 Hypo-osmolality and hyponatremia; I10 Essential (primary) hypertension; E66.9 Obesity, unspecified; Z68.30 Body mass index [BMI] 30.0-30.9, adult
CPT/HCPCS: 36415; 80053; 80305-QW; 80307; 85025; 96374; 96375; 96376; 99284; 99285-25; J1630; J2060

== ENCOUNTER 2021-09-10 17:26 | Emergency (ER) | payer MEDICAID ==
[2021-09-10] MEDS ORDERED: Haloperidol Lactate 5 MG/ML SDV IM ONE (18:06)
[2021-09-10] MEDS ORDERED: diphenhydrAMINE 50 MG/ML SDV IM ONE (18:07)
[2021-09-10] MEDS ORDERED: LORazepam 2 MG/ML SDV IM ONE (18:07)
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
[2021-09-10 18:40] LABS: BARBITURATE SCREEN,URINE NEGATIVE (NEGATIVE); BENZODIAZEPINES SCREEN,URINE NEGATIVE (NEGATIVE); EDDP,URINE SCREEN NEGATIVE (NEGATIVE); TCA SCREEN,URINE NEGATIVE (NEGATIVE); THC SCREEN,URINE 50 NG/ML NEGATIVE (NEGATIVE)
[2021-09-10 18:42] LABS: CHLORIDE,CL 96 mmol/L (98-107); SODIUM,NA 132 mmol/L (136-145)
[2021-09-10 18:44] LABS: ANION GAP 14.2 meq/L (7-15)
[2021-09-10 18:46] LABS: BUPRENORPHINE SCREEN,URINE NEGATIVE (NEGATIVE)
== END 2021-09-10 19:05 | disposition home or self-care (01) ==
LOC: LL.ED 17:26
DX: F31.9 Bipolar disorder, unspecified (principal); E83.42 Hypomagnesemia; I10 Essential (primary) hypertension; K21.9 Gastro-esophageal reflux disease without esophagitis; E66.9 Obesity, unspecified; Z79.899 Other long term (current) drug therapy
CPT/HCPCS: 36415; 80053; 80305-QW; 80307; 81001; 83735; 85025; 96372; 99283; 99284; J1200; J1630; J2060

== ENCOUNTER 2021-09-12 14:42 | Emergency (ER) | payer SELFPAY ==
[2021-09-12] MEDS ORDERED: Haloperidol Lactate 5 MG/ML SDV IM ONE ×3 (15:00→19:24)
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
[2021-09-12] MEDS ORDERED: Haloperidol Lactate 5 MG/ML SDV ONE (19:18)
== END 2021-09-12 20:13 ==
LOC: LL.ED 14:42
DX: F31.10 Bipolar disorder, current episode manic without psychotic features, unspecified (principal); F20.9 Schizophrenia, unspecified; R45.88 Nonsuicidal self-harm; K21.9 Gastro-esophageal reflux disease without esophagitis; E66.9 Obesity, unspecified; Z68.31 Body mass index [BMI] 31.0-31.9, adult; Z79.899 Other long term (current) drug therapy
CPT/HCPCS: 96372; 99284; 99285; J1630